=== PATIENT | male | born 1950 | race Caucasian/White ===

== ENCOUNTER → 2016-10-18 | Outpatient (CLI) | payer OTHER ==
[~2016-10-18] MED LIST: ADVIN50/60 INH; ALBU1AER9 INH; AMOX500C3 PO; ASPI-461 PO; ATOR-24 PO; DIGO0.2518 PO; ENAL10TA88 PO; EZET10TA63 PO; FRS/40 PO; GLC/500 PO; HYDR-5688 PO; IBUP600T44 PO; INDO1CAP34 PO; METO-551 PO; METO5TAB5 PO; OXYC-57 PO; POTA12PO5 PO; TIOTCAP INH; VENL75CA73 PO; ZOLP10TA6 PO
[2016-10-18 14:06] LABS: CHOLESTEROL/HDL RATIO 2.8
== END | disposition home or self-care (01) ==
LOC: C.LABMFLN 11:27
PROVIDERS: ATTEND Internal Medicine Cardiovascular Disease
DX: E78.5 Hyperlipidemia, unspecified (principal); I10 Essential (primary) hypertension

== ENCOUNTER → 2017-02-21 | Outpatient (CLI) | payer OTHER ==
[~2017-02-21] MED LIST changes: -GLC/500 PO; -IBUP600T44 PO; -OXYC-57 PO
[2017-02-21 14:07] LABS: BASO % 0.4 %; BASO ABS # 0.04 K/uL (0-0.2); COMPLETE YES; EOS % 0.9 %; HEMATOCRIT 41.1 % (42-52); IG% 1.9 %; LYMPH % 9.7 %; LYMPH ABS # 0.86 K/uL (1.2-3.4); MEAN CELL VOLUME 88.8 fL (80-100); MEAN CORPUSCULAR HEMOGLOBIN 29.2 pg (25-34); MEAN CORPUSCULAR HGB CONC 32.8 g/dl (32-36); MEAN PLATELET VOLUME 10.8 fL (7.4-10.4); MONO % 3.9 %; NEUT % 83.2 %; PLATELET COUNT 123 K/uL (130-400); RED BLOOD COUNT 4.63 M/uL (4.7-6.1)
[2017-02-21 15:19] LABS: CALCIUM 9.2 mg/dl (8.5-10.1)
[2017-02-21 15:20] LABS: ALT/SGPT 23 U/L (12-78); AST/SGOT 16 U/L (15-37); BLOOD UREA NITROGEN 26 mg/dl (7-18); BUN/CREATININE RATIO 23.3 (10-20); CARBON DIOXIDE 29 mmol/L (21-32); CHLORIDE 99 mmol/L (98-107); GLUCOSE 211 mg/dl (70-99); POTASSIUM 3.9 mmol/L (3.5-5.1); SODIUM 136 mmol/L (136-145)
[2017-02-21 15:24] LABS: ALB/GLOB RATIO 1.1 (0.9-2); ALKALINE PHOSPHATASE 55 U/L (45-117); CHOLESTEROL 152 mg/dl (0-200); HDL CHOLESTEROL 51 mg/dl; LDL CHOLESTEROL CALCULATED 78 mg/dl; PROSTATE SPECIFIC ANTIGEN 0.371 ng/ml (0.000-4.000); TRIGLYCERIDES 114 mg/dl (0-150); VERY LOW DENSITY LIPOPROT CALC 23 mg/dl
[2017-02-22 12:35] LABS: ESTIMATED AVERAGE GLUCOSE 166 mg/dl; HA1C FLAG Normal (Normal)
== END | disposition home or self-care (01) ==
LOC: C.LABSPEC 13:08
PROVIDERS: ATTEND Family Medicine
DX: Z00.00 Encounter for general adult medical examination without abnormal findings (principal); I10 Essential (primary) hypertension; G47.33 Obstructive sleep apnea (adult) (pediatric); I25.10 Atherosclerotic heart disease of native coronary artery without angina pectoris; Z12.5 Encounter for screening for malignant neoplasm of prostate

== ENCOUNTER → 2017-04-04 | Outpatient (CLI) | payer OTHER ==
[~2017-04-04] MED LIST changes: +GLC/500 PO; +IBUP600T44 PO; +OXYC-57 PO
[2017-04-04 14:07] LABS: ALT/SGPT 23 U/L (12-78); AST/SGOT 17 U/L (15-37); BLOOD UREA NITROGEN 21 mg/dl (7-18); BUN/CREATININE RATIO 21.8 (10-20); CALCIUM 9.5 mg/dl (8.5-10.1); CARBON DIOXIDE 34 mmol/L (21-32); CHLORIDE 101 mmol/L (98-107); CREATININE 0.97 mg/dl (0.60-1.40); GLUCOSE 173 mg/dl (70-99); POTASSIUM 4.1 mmol/L (3.5-5.1); SODIUM 138 mmol/L (136-145)
[2017-04-04 14:11] LABS: CHOLESTEROL 158 mg/dl (0-200); CHOLESTEROL/HDL RATIO 3.3; HDL CHOLESTEROL 48 mg/dl; LDL CHOLESTEROL CALCULATED 79 mg/dl; TRIGLYCERIDES 156 mg/dl (0-150); VERY LOW DENSITY LIPOPROT CALC 31 mg/dl
== END | disposition home or self-care (01) ==
LOC: C.LAB1850 11:31
PROVIDERS: ATTEND Internal Medicine Pulmonary Disease
DX: J44.9 Chronic obstructive pulmonary disease, unspecified (principal); I50.9 Heart failure, unspecified; I25.10 Atherosclerotic heart disease of native coronary artery without angina pectoris

== ENCOUNTER → 2017-04-06 | Outpatient (CLI) | payer OTHER ==
[~2017-04-06] MED LIST changes: +OPTIRAY 320 IV PRN
--- NOTE | 2017-04-06 14:02 | DIAGNOSTIC IMAGING REPORT ---
CT OF THE CHEST WITH IV CONTRAST CLINICAL HISTORY: COPD, shortness of breath, abnormal chest x-ray. COMPARISON STUDY: Chest x-ray dated 03/29/2017 TECHNIQUE: Following the IV administration of 94 mL of Optiray-320, CT of the thorax was performed from the thoracic inlet to the lung bases. Images are reviewed in the axial, sagittal, and coronal planes. IV contrast was administered without complication. A dose lowering technique was utilized adhering to the principles of ALARA. CT DOSE: 1513.72 mGy.cm FINDINGS: Thyroid: Imaged portions of the thyroid gland are normal in appearance. Thoracic aorta: The thoracic aorta is normal in course and caliber, noting standard 3-vessel arch anatomy. No aneurysm or dissection is seen. Pulmonary vasculature: The pulmonary trunk is normal in caliber. There are no central filling defects identified to suggest pulmonary embolus. Note that this examination was not protocoled for the evaluation of pulmonary emboli. HEART: There are coronary artery calcifications present. Lungs and pleural spaces: There is a small left pleural effusion. Left basilar parenchymal opacities are felt to be atelectatic. Mediastinum: There is mediastinal lymphadenopathy. An index subcarinal lymph node measures 16 mm in diameter. [place]: There is no evidence of pathologic hilar adenopathy Axilla: There is no evidence of pathologic axillary lymphadenopathy Upper abdomen: There is suspected splenomegaly Skeletal structures: There are no lytic or blastic osseous lesions. IMPRESSION: 1. Small left pleural effusion with left basilar atelectasis 2. Mild mediastinal lymphadenopathy 3. Splenomegaly Electronically signed by: Erlin Beth M.D. 04/06/2017 2:00 PM Dictated Date/Time: 04/06/2017 1:55 PM
== END | disposition home or self-care (01) ==
LOC: C.CTS 12:25
PROVIDERS: ATTEND Internal Medicine Pulmonary Disease
DX: J44.9 Chronic obstructive pulmonary disease, unspecified (principal); G47.33 Obstructive sleep apnea (adult) (pediatric); R06.02 Shortness of breath; J90 Pleural effusion, not elsewhere classified; J98.11 Atelectasis; R16.1 Splenomegaly, not elsewhere classified

== ENCOUNTER 2017-04-18 06:39 | Observation (INO) | payer OTHER ==
[2017-03-29 08:45] VITALS: BMI 41.0
--- NOTE | 2017-03-29 09:34 | PAT Medication Instructions ---
Service Date Mar 29, 2017. Current Home Medication List Albuterol (Proair Hfa), 2 PUFFS INH BID PRN for COPD/EMPHYSEMA Amoxicillin (Amoxil), 4 CAP PO BEFORE DENTAL Aspirin (Aspirin), 1 TAB PO QAM Atorvastatin (Lipitor), 40 MG PO HS Digoxin (Lanoxin), 0.25 MG PO HS Enalapril (Vasotec), 20 MG PO QAM Ezetimibe (Zetia), 10 MG PO HS Fluticasone Prop/Salmeterol (Advair Diskus 500/50 60 Dose), 1 PUFF INH QAM Furosemide (Lasix), 80 MG PO DAILY PRN for WEIGHT GAIN Hydrocodone/Acetaminophen 5MG/325MG ([place] 5MG/325MG), 1 TABLET PO Q4H PRN for Pain Indomethacin (Indomethacin), 75 MG PO DAILY PRN for PRN Metformin Hcl (Glucophage), 500 MG PO BID Metolazone (Zaroxolyn), 5 MG PO DAILY PRN for WHEN TAKES LASIX Metoprolol Tartrate (Lopressor), 50 MG PO QAM Potassium Chloride (Klor-Con), 2 TABS PO DAILY PRN for WHEN TAKES LASIX Tiotropium [place] (Spiriva Handihaler), 1 CAP INH QAM Venlafaxine Hcl (Venlafaxine Extended Rel), 75 MG PO QAM Zolpidem Tartrate (Zolpidem Tartrate), 1 TAB PO HS Medication Instructions For Your Scheduled Surgery Amoxicillin (Amoxil), 4 CAP PO BEFORE DENTAL (prior to dental procedures) Aspirin (Aspirin), 81mg 1 TAB PO QAM (check with surgeon/matching machine operator for instructions) Indomethacin (Indomethacin), 75 MG PO DAILY PRN for PRN (check with surgeon for instructions) - Hold the following medications 48 hours prior to surgery: Metformin Hcl (Glucophage), 500 MG PO BID - Hold the following medications the morning of surgery: Potassium Chloride (Klor-Con), 2 TABS PO DAILY PRN for WHEN TAKES LASIX Furosemide (Lasix), 80 MG PO DAILY PRN for WEIGHT GAIN Enalapril (Vasotec), 20 MG PO QAM Metolazone (Zaroxolyn), 5 MG PO DAILY PRN for WHEN TAKES LASIX - Take the following medications the morning of surgery with a sip of water: Tiotropium [place] (Spiriva Handihaler), 1 CAP INH QAM Venlafaxine Hcl (Venlafaxine Extended Rel), 75 MG PO QAM Metoprolol Tartrate (Lopressor), 50 MG PO QAM Hydrocodone/Acetaminophen 5MG/325MG ([place] 5MG/325MG), 1 TABLET PO Q4H PRN for Pain (okay to take up to four hours prior to surgery if needed) Fluticasone Prop/Salmeterol (Advair Diskus 500/50 60 Dose), 1 PUFF INH QAM Albuterol (Proair Hfa), 2 PUFFS INH BID PRN for COPD/EMPHYSEMA (if needed) - Take the following medications as scheduled the night before surgery: Zolpidem Tartrate (Zolpidem Tartrate), 1 TAB PO HS Hydrocodone/Acetaminophen 5MG/325MG ([place] 5MG/325MG), 1 TABLET PO Q4H PRN for Pain (if needed) Potassium Chloride (Klor-Con), 2 TABS PO DAILY PRN for WHEN TAKES LASIX (if needed) Furosemide (Lasix), 80 MG PO DAILY PRN for WEIGHT GAIN (if needed) Ezetimibe (Zetia), 10 MG PO HS Atorvastatin (Lipitor), 40 MG PO HS Digoxin (Lanoxin), 0.25 MG PO HS Albuterol (Proair Hfa), 2 PUFFS INH BID PRN for COPD/EMPHYSEMA (if needed) Metolazone (Zaroxolyn), 5 MG PO DAILY PRN for WHEN TAKES LASIX If you have any questions please call us at [phone] or [phone] or [phone]
--- NOTE | 2017-03-29 10:34 | DIAGNOSTIC IMAGING REPORT ---
CHEST PREADMISSION(PA/LAT) HISTORY: Preop. COMPARISON: Chest 09/11/2014. FINDINGS: The heart remains mildly enlarged. No pneumothorax. The right lung is clear. Small opacity and blunting and the left lateral costophrenic sulcus. This is consistent with a small left pleural effusion. There are few left basilar linear densities. IMPRESSION: Small left pleural effusion. A few left basilar nonspecific linear densities which may represent atelectasis. Stable mild cardiomegaly. Electronically signed by: Heber Saldivar M.D. 03/29/2017 10:33 AM Dictated Date/Time: 03/29/2017 10:27 AM
[2017-03-29 10:42] LABS: BASO % 0.7 %; BASO ABS # 0.06 K/uL (0-0.2); COMPLETE YES; EOS % 1.6 %; HEMATOCRIT 40.1 % (42-52); IG% 3.4 %; LYMPH % 11.8 %; LYMPH ABS # 1.04 K/uL (1.2-3.4); MEAN CELL VOLUME 90.7 fL (80-100); MEAN CORPUSCULAR HGB CONC 31.9 g/dl (32-36); MEAN PLATELET VOLUME 9.8 fL (7.4-10.4); NEUT % 74.5 %; PLATELET COUNT 131 K/uL (130-400); RED BLOOD COUNT 4.42 M/uL (4.7-6.1); WHITE BLOOD COUNT 8.83 K/uL (4.8-10.8)
[2017-03-29 10:44] LABS: URINE APPEARANCE CLEAR (CLEAR); URINE BILIRUBIN NEG (NEG); URINE COLOR YELLOW; URINE NITRITE NEG (NEG); URINE PH 7.5 (4.5-7.5); URINE SPECIFIC GRAVITY 1.014 (1.000-1.030); UROBILINOGEN NEG (NEG); ZZUR CULT IF INDIC CLEAN CATCH NO
[2017-03-29 10:45] LABS: MANUAL MICROSCOPIC REQUIRED? NO; REVIEW REQ? NO
[2017-03-29 10:48] LABS: BUN/CREATININE RATIO 18.4 (10-20); CREATININE 1.1 mg/dl (0.60-1.40); POTASSIUM 4.2 mmol/L (3.5-5.1)
[2017-03-29 10:49] LABS: INR 1.1 (0.9-1.1); PARTIAL THROMBOPLASTIN RATIO 1.1; PROTHROMBIN TIME (PATIENT) 11.9 SECONDS (9.0-12.0)
--- NOTE | 2017-04-17 19:21 | HISTORY & PHYSICAL EXAMINATION ---
DATE OF ADMISSION: 04/18/2017 CHIEF COMPLAINT: Chronic left shoulder pain. HISTORY OF PRESENT ILLNESS: This is a 67-year-old male patient of Dr. Guerrero, complaining of chronic left shoulder pain longstanding and now progressively getting worse. The patient had a fall at his home. He has been diagnosed with a rotator cuff tear as well as impingement. He is electing to proceed with a left shoulder arthroscopic rotator cuff repair and subacromial decompression. PAST MEDICAL HISTORY: Hypertension, hypercholesterolemia, COPD, sleep apnea with the use of CPAP, diabetes mellitus, obesity, kidney stones. SOCIAL HISTORY: One pack per day smoker. Occasional drinker. PAST SURGICAL HISTORY: Stents in the heart and a left total hip replacement. REVIEW OF SYSTEMS: The patient complains of chronic left shoulder pain. Otherwise, denies any shortness of breath, chest pain, nausea, vomiting or joint complaints. FAMILY HISTORY: Noncontributory. MEDICATIONS: 1. Metoprolol 50 mg daily. 2. Advair Diskus 100/50 mcg 1 puff b.i.d. 3. ProAir HFA 90 mcg 2 puffs q. 4-6 hours p.r.n. 4. Digoxin 50 mcg as needed. 5. Indomethacin 50 mg t.i.d. as needed. 6. Vicodin. 7. Amoxicillin. 8. Keflex. 9. Prednisone as needed. ALLERGIES: STRAWBERRY FOODS. PHYSICAL EXAMINATION: GENERAL: Well-developed, well-nourished 67-year-old male in no acute distress. He is alert and oriented x3 and pleasant. HEENT: Normocephalic, atraumatic. Extraocular motions are intact. Pupils are equal and reactive to light. HEART: Regular rate and rhythm. No murmurs are appreciated. LUNGS: Clear. ABDOMEN: Soft, nontender, bowel sounds are present. EXTREMITIES: Left shoulder reveals 3/5 strength globally. He has got positive impingement range of motion. NEUROLOGIC: Neurovascularly, he is intact in his left upper extremity. DIAGNOSES: Left shoulder rotator cuff tear and impingement. He also has a history of hypertension, hypercholesterolemia, chronic obstructive pulmonary disease, sleep apnea with the use of CPAP, diabetes mellitus, obesity, kidney stones. PLAN: The patient was advised of the diagnoses. Indications, risks, benefits, and postop course have all been reviewed. The patient wishes to proceed with a left shoulder arthroscopic rotator cuff repair and subacromial decompression. Necessary consent forms, preoperative testing and clearances will be obtained.
[~2017-04-18] VITALS: Ht 182.9 cm; Wt 138.4 kg
[2017-04-18] VITALS (9 sets, daily range): BP systolic 123–147; BP diastolic 69–92; PULSE 76–93; TEMP 36.8–37.3; O2SAT 91–96; Ht 182.9 cm; Wt 138.4 kg
[~2017-04-18 06:39] MED LIST changes: +CEFAZOLIN 3000 MG/65 ML D5W IV SCH; +DEXAMETHASONE SOD INJ 4 MG/ML VIAL ONE; -IBUP600T44 PO; +LACTATED RINGER'S 1000ML 1,000 ML IV SCH; -OPTIRAY 320 IV PRN; -OXYC-57 PO; +ROPIVACAINE 0.5% 5 MG/ML 30 ML VIAL ONE
[2017-04-18] MEDS ORDERED: IBUP600T44 PO (07:03)
--- NOTE | 2017-04-18 08:53 | History & Physical Bridge Note ---
H&P Re-Evaluation Bridge Note: I have examined the patient, reviewed the History & Physical and in the interval since the performance of the History & Physical I have noted the following changes of clinical significance: No changes noted
[2017-04-18] MEDS ORDERED: FENTANYL CITRATE INJ 50 MCG/1 ML 2 ML VIAL ONE (09:07)
[2017-04-18] MEDS ORDERED: MIDAZOLAM HCL 1 MG/ML 2ML VIAL ONE (09:07)
[2017-04-18] MEDS ORDERED: EpINEphrine HCL INJ 1 MG/ML 5ML SYRINGE ONE ×4 (09:33→12:39)
[2017-04-18] MEDS ORDERED: PROPOFOL IV EMULSION 10 MG/ML 20 ML VIAL IV ONE (10:42)
[2017-04-18] MEDS ORDERED: LABETALOL HCL IV 5 MG/ML 20ML IV PRN (10:45)
[2017-04-18] MEDS ORDERED: HYDROmorphone INJ 1 MG/ML SYR IV PRN (10:45)
[2017-04-18] MEDS ORDERED: MEPERIDINE HCL 25 MG/ML CARP IV PRN (10:45)
[2017-04-18] MEDS ORDERED: FENTANYL CITRATE INJ 50 MCG/1 ML 2 ML VIAL IV PRN (10:45)
[2017-04-18] MEDS ORDERED: EpHEDrine SULFATE INJ 50 MG/ML AMP IV PRN (10:45)
[2017-04-18] MEDS ORDERED: ATROPINE SULFATE 0.1 MG/ML 5ML SYR IV PRN (10:45)
[2017-04-18] MEDS ORDERED: LIDOCAINE HCL 2% 2 ML VIAL (20MG/ML) ONE (11:27)
[2017-04-18] MEDS ORDERED: NEOSTIGMINE METHYLSULFATE 5 MG/5 ML SYR ONE (11:27)
[2017-04-18] MEDS ORDERED: ROCURONIUM BROMIDE 10 MG/ML 5 ML VIAL IV ONE (11:27)
[2017-04-18] MEDS ORDERED: GLYCOPYRROLATE INJ 0.2 MG/ML VIAL ONE (11:27)
[2017-04-18] MEDS: ONDANSETRON INJ 2 MG/ML 2 ML VIAL IV PRN (13:42)
[2017-04-18] MEDS ORDERED: MAGNESIUM HYDROXIDE SUSP 30 ML UDC PO PRN (14:00)
[2017-04-18] MEDS ORDERED: ALBUTEROL HFA 8 GM INHALER INH PRN (14:00)
[2017-04-18] MEDS ORDERED: POTASSIUM CHLORIDE PWD 20 MEQ PACK PO PRN (14:00)
[2017-04-18] MEDS ORDERED: METOLAZONE 5 MG TAB PO PRN (14:00)
[2017-04-18] MEDS ORDERED: FUROSEMIDE 40 MG TAB PO PRN (14:00)
[2017-04-18] MEDS ORDERED: ONDANSETRON INJ 2 MG/ML 2 ML VIAL IV PRN (14:00)
[2017-04-18] MEDS ORDERED: MoRPHine SULFATE 2 MG/ML CARP IV PRN (14:00)
--- NOTE | 2017-04-18 14:06 | [facility] Post Operative Brief Note ---
Immediate Operative Summary Operative Date Apr 18, 2017. Pre-Operative Diagnosis Left shoulder rotator cuff tear and impingment Post-Operative Diagnosis Left shoulder rotator cuff tear and impingment Procedure(s) Performed Left shoulder arthroscopic rotator cuff repair, subacromial decompression,EXTENSIVE DEBRIDEMENT Surgeon Dr. Fernandez Paper Sealer Surgeon(s) Lupe Funez PA-C Estimated Blood Loss 25CC Findings MASSIVE TEAR ACUTE ON CHRONIC BICEPS AND LABRAL TEARS AND HILL SACHS LESION Specimens NONE Drains NONE Anesthesia GENERAL REGIONAL Complication(s) None Disposition Recovery Room / PACU
[2017-04-18] MEDS ORDERED: IV FLUIDS COMPLETED PRN (14:15)
--- NOTE | 2017-04-18 14:28 | Anesthesiology Progress Note ---
Anesthesia Post Op Note Date & Time Apr 18, 2017 at 14:28 Vital Signs Pain Intensity: 2 Vital Signs Past 12 Hours Date Time Temp Pulse Resp B/P (MAP) Pulse Ox O2 Delivery O2 Flow Rate FiO2 04/18/17 14:07 36.3 80 22 124/72 (88) 95 Nasal Cannula 2 04/18/17 14:06 124/72 04/18/17 14:02 71 28 95 04/18/17 14:02 75 28 04/18/17 14:01 120/67 04/18/17 13:57 77 22 98 04/18/17 13:57 83 22 04/18/17 13:56 124/73 04/18/17 13:52 74 30 04/18/17 13:52 79 30 97 04/18/17 13:51 119/80 04/18/17 13:47 83 29 04/18/17 13:47 84 29 97 04/18/17 13:46 121/66 04/18/17 13:42 82 22 04/18/17 13:42 90 22 96 04/18/17 13:41 119/70 04/18/17 13:37 92 23 04/18/17 13:37 90 23 96 04/18/17 13:36 123/80 04/18/17 13:32 36.0 85 12 115/75 94 Mask 10 04/18/17 13:32 77 28 115/75 94 04/18/17 13:32 79 28 04/18/17 07:03 37.1 79 20 132/75 (94) 94 Room Air Notes Mental Status: alert / awake / arousable, participated in evaluation Pt Amnestic to Procedure: Yes Nausea / Vomiting: adequately controlled Pain: adequately controlled Airway Patency, RR, SpO2: stable & adequate BP & HR: stable & adequate Hydration State: stable & adequate Anesthetic Complications: no major complications apparent
[2017-04-18] MEDS ORDERED: NURSING VERBAL MED ORDER ONE (15:45)
[2017-04-18] MEDS ORDERED: COUGH DROP (SUGAR FREE) LOZ 24 LOZ/1 BOX ONE (15:48)
[2017-04-18] MEDS ORDERED: COUGH DROP (SUGAR FREE) LOZ 24 LOZ/1 BOX PO PRN (16:00)
[2017-04-18] MEDS ORDERED: ALBUT/IPRATROP 3MG/0.5MG NEB 3 ML VIAL INH PRN ×2 (16:00→16:15)
[2017-04-18] MEDS ORDERED: D5W AND 1/2NSS + 20MEQ KCL 1,000 ML IV SCH (16:00)
--- NOTE | 2017-04-18 16:11 | Progress Note ---
Subjective Date of Service: Apr 18, 2017. Subjective Pt evaluation today including: conversation w/ patient, conversation w/ family (daughter), physical exam, lab review, review of inpatient medication list Pain: denies shoulder pain PO Intake: drinking well Voiding: no voiding problems surgery went well, had extensive damage and took longer than anticipated, EBL only 25cc vitals stable post op patient denies chest pain, SOB, N/V, abdominal pain resting with nasal CPAP currently reviewed prior labs Review of Systems Musculoskeletal: + joint pain (mild left shoulder pain, immobilized) All Other Systems: Reviewed and Negative Medications Current Inpatient Medications Medications (Trade) Dose Ordered Sig/Cheri Route Start Time Stop Time Status Last Admin Dose Admin Cefazolin Sodium 65 ml @ 100 mls/hr PREOP IV 04/18/17 06:00 04/18/17 18:00 04/18/17 09:57 100 MLS/HR Ondansetron HCl (Zofran Inj) 4 mg Q6H PRN IV 04/18/17 14:00 05/18/17 13:59 Potassium Chloride/Dextrose/ Sod Cl 1,000 ml @ 100 mls/hr Q10H IV 04/18/17 16:00 05/18/17 15:59 Oxycodone HCl (Roxicodone Immediate Rel Tab) `1-2 TABS FOR PAIN `1 TAB... Q4H PRN PO 04/18/17 14:00 05/02/17 13:59 Acetaminophen (Tylenol Tab) 1,000 mg Q8 PO 04/18/17 15:45 05/18/17 15:44 Magnesium Hydroxide (Milk Of Magnesia Susp) 30 ml Q6H PRN PO 04/18/17 14:00 05/18/17 13:59 Cefazolin Sodium 2000 mg/Dextrose 60 ml @ 100 mls/hr Q8H IV 04/18/17 18:00 04/18/17 18:35 Albuterol (Ventolin Hfa Inhaler) 2 puffs BID PRN INH 04/18/17 14:00 05/18/17 13:59 Aspirin (Ecotrin Tab) 81 mg QAM PO 04/19/17 09:00 05/19/17 08:59 Atorvastatin Calcium (Lipitor Tab) 40 mg HS PO 04/18/17 21:00 05/18/17 20:59 Digoxin (Lanoxin Tab) 0.25 mg HS PO 04/18/17 21:00 05/18/17 20:59 Enalapril Maleate (Vasotec Tab) 20 mg QAM PO 04/19/17 09:00 05/19/17 08:59 EZETIMIBE (Zetia Tab) 10 mg HS PO 04/18/17 21:00 05/18/17 20:59 Salmeterol Xinafoate/ Fluticasone (Advair Diskus 500/50 Inh) 1 puff QAM INH 04/19/17 09:00 05/19/17 08:59 Furosemide (Lasix Tab) 80 mg DAILY PRN PO 04/18/17 14:00 05/18/17 13:59 Metformin HCl (Glucophage Tab) 500 mg BID PO 04/18/17 21:00 05/18/17 20:59 Metolazone (Zaroxolyn Tab) 5 mg DAILY PRN PO 04/18/17 14:00 05/18/17 13:59 Metoprolol Tartrate (Lopressor Tab) 50 mg QAM PO 04/19/17 09:00 05/19/17 08:59 Potassium Chloride (Klor-Con Pwd) 40 meq DAILY PRN PO 04/18/17 14:00 05/18/17 13:59 Venlafaxine HCl (effeXOR EXTENDED REL CAP) 75 mg QAM PO 04/19/17 09:00 05/19/17 08:59 Zolpidem Tartrate (Ambien Tab) 10 mg HS PO 04/18/17 21:00 05/18/17 20:59 Morphine Sulfate (MoRPHine SULFATE INJ) 2 mg Q4 PRN IV 04/18/17 14:00 05/02/17 13:59 Miscellaneous (Iv Fluids Completed) 1 ea PRN PRN N/A 04/18/17 14:15 04/18/18 14:14 Menthol (Nice Klarissa) 1 klarissa PRN PRN PO 04/18/17 16:00 05/18/17 15:59 Insulin Aspart (novoLOG ASPART) SLIDING SCALE G... ACHS SC 04/18/17 17:15 05/18/17 17:14 UNV Albuterol/ Ipratropium (Duoneb) 3 ml Q4R PRN INH 04/18/17 16:00 05/18/17 15:59 UNV Objective Vital Signs Date Time Temp Pulse Resp B/P (MAP) Pulse Ox O2 Delivery O2 Flow Rate FiO2 04/18/17 15:40 37.2 83 20 138/79 (98) 96 Nasal Cannula 2.0 04/18/17 15:10 36.8 83 18 123/73 (90) 95 Nasal Cannula 2.0 04/18/17 14:40 94 Nasal Cannula 2.0 04/18/17 14:40 Nasal Cannula 2.0 CPAP 04/18/17 14:30 37.0 82 16 126/86 (99) 95 Nasal Cannula 2.0 04/18/17 14:27 76 17 131/74 04/18/17 14:27 17 04/18/17 14:22 81 27 04/18/17 14:22 77 27 94 04/18/17 14:21 120/65 04/18/17 14:17 79 26 93 04/18/17 14:17 80 26 04/18/17 14:16 125/63 04/18/17 14:12 78 27 93 04/18/17 14:12 80 27 04/18/17 14:11 116/64 04/18/17 14:07 36.3 80 22 124/72 (88) 95 Nasal Cannula 2 04/18/17 14:07 79 28 95 04/18/17 14:07 79 28 04/18/17 14:06 124/72 04/18/17 14:02 71 28 95 04/18/17 14:02 75 28 04/18/17 14:01 120/67 04/18/17 13:57 77 22 98 04/18/17 13:57 83 22 04/18/17 13:56 124/73 04/18/17 13:52 74 30 04/18/17 13:52 79 30 97 04/18/17 13:51 119/80 04/18/17 13:47 83 29 04/18/17 13:47 84 29 97 04/18/17 13:46 121/66 04/18/17 13:42 82 22 04/18/17 13:42 90 22 96 04/18/17 13:41 119/70 04/18/17 13:37 92 23 04/18/17 13:37 90 23 96 04/18/17 13:36 123/80 04/18/17 13:32 36.0 85 12 115/75 94 Mask 10 04/18/17 13:32 77 28 115/75 94 04/18/17 13:32 79 28 04/18/17 07:03 37.1 79 20 132/75 (94) 94 Room Air Physical Exam General Appearance: no apparent distress, + obese Eyes: normal inspection, EOMI, sclerae normal ENT: normal ENT inspection, hearing grossly normal, pharynx normal Neck: supple, no adenopathy, no JVD, trachea midline Respiratory/Chest: chest non-tender, lungs clear, normal breath sounds, no respiratory distress, no accessory muscle use Cardiovascular: regular rate, rhythm, no edema, no gallop, no JVD, no murmur Abdomen: normal bowel sounds, non tender, soft, no organomegaly Extremities: no pedal edema, no calf tenderness, pelvis stable, + pertinent finding (left shoulder immobilized) Neurologic/Psychiatric: motor man II-XII nml as tested, no motor/sensory deficits, alert, normal mood/affect, oriented x 3 Skin: normal color, warm/dry, no rash Laboratory Results Last 24 Hours Test 04/18/17 07:35 04/18/17 13:36 04/18/17 15:59 Bedside Glucose 187 mg/dl 246 mg/dl Assessment and Plan 67 yo male s/p Left shoulder arthroscopic rotator cuff repair, subacromial decompression and extensive debridement - DM type II: continue Metformin, Novolog SS ordered, diabetic diet well controlled at home per patient - COPD: continue Advair, duonebs ordered PRN, no wheezing currently and breathing comfortably - HTN: BP normal currently, continue home regimen, check BMP tomorrow AM - BELEN: using home CPAP with nasal mask - GERD: PPI check labs in the AM, likely sign off if he remains stable
[2017-04-18] MEDS ORDERED: GLUCAGON FOR INJ 1 MG VIAL SQ PRN (16:15)
[2017-04-18] MEDS ORDERED: DEXTROSE 50% 50 ML SYR IV PRN (16:15)
[2017-04-18] MEDS ORDERED: GLUCOSE 40% GEL 15 GM TUBE PO PRN (16:15)
[2017-04-18] MEDS ORDERED: GLUCOSE 10 TABS/TUBE PO PRN (16:15)
[2017-04-18] MEDS: ACETAMINOPHEN 500 MG TAB PO SCH ×2 (16:22→21:07)
[2017-04-18] MEDS: SODIUM CHLORIDE 0.45% 1000ML 1,000 ML IV SCH (17:02)
[2017-04-18] MEDS ORDERED: CEFAZOLIN IV 2,000 MG in DEXTROSE 5% 50ML 50 ML IV SCH (18:00)
[2017-04-18] MEDS: INSULIN ASPART 100 UNITS/ML 3 ML PEN SC SCH ×2 (18:18→21:16)
[2017-04-18] MEDS ORDERED: EZETIMIBE 10MG TAB PO SCH (21:00)
[2017-04-18] MEDS ORDERED: ATORVASTATIN 40 MG TAB PO SCH (21:00)
[2017-04-18] MEDS ORDERED: ZOLPIDEM TARTRATE 10 MG TAB PO SCH (21:00)
[2017-04-18] MEDS ORDERED: DIGOXIN 0.25 MG TAB PO SCH (21:00)
[2017-04-18] MEDS: METFORMIN HCL 500 MG TAB PO SCH (21:04)
[2017-04-18] MEDS: OXYCODONE HCL IR 5 MG TAB (IMMEDIATE RELEASE) PO PRN (23:48)
[2017-04-19] MEDS: SODIUM CHLORIDE 0.45% 1000ML 1,000 ML IV SCH (02:18)
[2017-04-19 03:58] VITALS: BP 105/73; PULSE 82; TEMP 37.1; O2SAT 97
[2017-04-19] MEDS: OXYCODONE HCL IR 5 MG TAB (IMMEDIATE RELEASE) PO PRN (04:07)
--- NOTE | 2017-04-19 04:44 | OPERATIVE REPORT ---
DATE OF OPERATION: 04/18/2017 INDICATION FOR PROCEDURE: The patient is a 67-year-old male who presents with significant disability with regard to his left shoulder after a dislocation. According to his history, claimed that he had normal function, although he has had a chronic rotator cuff tear in his opposite shoulder and felt he had normal function there but clearly had some external rotation weakness but was not giving him a big disability. So it was a possibility he could have some element of chronic tearing of his left shoulder as well that he was compensating for. His radiographs demonstrate he has some AC joint arthritis with some inferior spurs causing impingement. He also had x-rays demonstrating a large Hill-Sachs lesion and a located shoulder. MRI demonstrating a large Hill-Sachs lesion, a massive cuff tear involving the subscapularis, supraspinatus and infraspinatus. Biceps is not well visualized and could be ruptured. PREOPERATIVE DIAGNOSES: Left shoulder massive posttraumatic rotator cuff tear, likely acute on chronic with possible biceps rupture with Hill-Sachs lesion secondary to subacute anterior dislocation of left shoulder, complicated by morbid obesity. POSTOPERATIVE DIAGNOSES: Massive rotator cuff tear, subscapularis, supraspinatus and infraspinatus with biceps rupture, glenoid labral tear, synovitis, subacromial bursitis, subacromial impingement from inferior acromioclavicular joint spurs. PROCEDURE: Left shoulder arthroscopic rotator cuff repair with extensive debridement and subacromial decompression. SURGEON: Dr. Fernandez. DRESSING ROOM PORTER: Lupe Funez PA-C. ANESTHESIA: Regional block and general. OPERATIVE PROCEDURE: The patient was taken to the operating room and anesthetized under regional block and general anesthetic. He was positioned on a [facility] shoulder table in a 70-degree beach chair position. His left shoulder was examined. He did have an obese arm. Most of his obesity was in his body, chest and hip area. His shoulder had good range of motion with 165 degrees of forward elevation and external rotation of the arm to the side to about 80 degrees. I did not check him in the 90-90 position to prevent recurrent dislocation. His left shoulder was then sterilely prepped and draped with ChloraPrep. Arthroscopy was initiated with a posterior arthroscopy portal in the soft spot, made an anterior portal in the rotator interval, we made an anterior lateral portal in the subacromial space to assist with the repair of the subscapularis and subacromial work. I made an anterior superior lateral portal for suture anchor placement. Intra-articular findings demonstrate that he had a very large deep Hill-Sachs lesion posteriorly. The remainder of the articular surface was reasonably good. He had a little bit of fraying of the articular surface at the edge of the Hill-Sachs lesion. He had torn anterior labrum, but no Bankart lesion. There was some fraying of the labrum and some small flaps of tissue there. The biceps tendon was completely torn with a small stump of biceps remaining superiorly of the superior glenoid. The patient clearly had a subscapularis upper margin tear. There was a ____ sign that would be typically seen. The lower portion of the subscapularis was still intact, although thin and somewhat tendinopathic. The supraspinatus was torn and retracted, the infraspinatus was torn and retracted and the teres minor was still intact. The infraspinatus tendon was torn into 2 fragments, about two-thirds and one-third of the infraspinatus with a smaller thinner fragment toward the supraspinatus junction. One could clearly see on the greater tuberosity that the infraspinatus tear appeared to be more acute as there was some soft tissue still remaining on the greater tuberosity, right adjacent to the large Hill-Sachs lesion. Supraspinatus appeared to be more chronic tearing. In the subacromial space, he had a type 2 acromion. He did not have any fraying of the CA ligament, but did have some inferior AC joint spurs that were contributing to some impingement. There was some thick bursa tissue overlying the rotator cuff. Starting at glenohumeral joint, I released the rotator interval tissue around the base of the coracoid, the upper portion of the subscapularis, the outer and inner surface of subscapularis that could be mobilized and released the superior capsule into the supraspinatus. I did this with the radiofrequency ablator. I took care not to go more than a centimeter medial to the glenoid to prevent any injury to the suprascapular nerve. The biceps tendon was debrided. The labrum was debrided back to normal tissue, some of the synovium was debrided. Then the footprint of the subscapularis, lesser tuberosity was debrided to bone. Then we put traction on the subscap tendon to see how far we could get it to the lesser tuberosity to repair. We were able to fully translate it over to the lesser tuberosity. Then I went ahead and placed a Q-Fix anchor at that fixation point which was a 2.8 mm López & Nephew suture anchor. It held satisfactorily. The sutures were passed with the Boloco suture passer around the subscapularis tendon. Then tied with Belle sliding locking knot 3 reverse half hitches on alternating posts, repairing subscap back to the lesser tuberosity. Then attention was taken to the remainder of the cuff repair. Then we placed the arthroscopic instrumentation into the subacromial space, did further debridement of the subacromial bursa, releasing all subacromial adhesions and fully visualizing the cuff tear of the supraspinatus and infraspinatus. Then we placed traction on the supraspinatus and infraspinatus and felt we could repair these back to the bone, although not all the way back anatomically at the normal location due to some retraction. Also due to some tendon loss. At this time, attention was first taken to the infraspinatus and supraspinatus. The infraspinatus footprint was debrided down to bone. The supraspinatus footprint was debrided down to bone, all the way up to the subscap repair. Then the infraspinatus was repaired, placing a Q-Fix anchor in the greater tuberosity at the maximum excursion of the infraspinatus, back over the tuberosity in order not to have too much tension on the repair. Then we placed an Arthrex tape, an inverted mattress fixation to act as a rip-stop suture. We passed the Q-Fix sutures around that suture. We tied the Q-Fix sutures first and then we the placed rip-stop sutures into a footprint anchor, however, when we were inserting that, the tapes got caught up in the mechanism of the footprint, making it difficult to slide. We were able to negotiate it into the hole that was made with an awl and impacted in position, but after tightening the screw, the anchor pulled out and we felt we could not use this successfully, so we had to remove the anchor, we could not leave the tapes in place because they were caught up in the mechanism of the anchor and we had to cut the tapes out. Despite that, the fixation of the Q-Fix anchor was still secure and with rotation of the arm, the sutures held in the infraspinatus. The supraspinatus was then repaired with a similar Q-Fix anchor placed in the supraspinatus footprint. We placed the 2 sutures through the supraspinatus tendon tissue using a Scorpion suture passer and tied them down with Belle sliding locking knot 3 reverse half hitches on alternating posts. We were able to get a complete front to back repair, repairing all tendon groups. At this time, the shoulder was getting a bit swollen due to length of the surgery and fluid extravasation, so I felt that we would not proceed with distal clavicle excision due to the mild swelling but did go ahead and proceed with a decompression of the inferior AC joint spurs with a 5.5 bur, playing them down smoother to make more room in the subacromial space and did not do a formal acromioplasty procedure. At this time, the arthroscopic instrumentation was removed. The portal sites were then closed with 2-0 and 3-0 nylon sutures. Sterile dressings were applied and gauze bandages as well as ABDs and foam tape. The patient was placed into an abduction pillow, sling immobilizer. The patient will be admitted for 23-hour observation due to his medical comorbidities. The patient did tolerate the procedure well. FRANCOISE Virk, was my group fitness assistant department head. He functioned as group fitness assistant department head for the entire procedure. He assisted in patient positioning, instrument management, arm positioning, suture management and will participate in some of the postoperative care of the patient. I attest to the content of the Intraoperative Record and any orders documented therein. Any exception s are noted below.
[2017-04-19] MEDS: ACETAMINOPHEN 500 MG TAB PO SCH (06:03)
[2017-04-19 06:32] LABS: BASO % 0.2 %; BASO ABS # 0.02 K/uL (0-0.2); COMPLETE YES; EOS % 0.3 %; HEMATOCRIT 36.5 % (42-52); IG% 1.1 %; LYMPH % 7.8 %; LYMPH ABS # 0.98 K/uL (1.2-3.4); MEAN CELL VOLUME 88.6 fL (80-100); MEAN CORPUSCULAR HEMOGLOBIN 28.9 pg (25-34); MEAN CORPUSCULAR HGB CONC 32.6 g/dl (32-36); MEAN PLATELET VOLUME 9.5 fL (7.4-10.4); MONO % 7.9 %; NEUT % 82.7 %; PLATELET COUNT 118 K/uL (130-400); RED BLOOD COUNT 4.12 M/uL (4.7-6.1); WHITE BLOOD COUNT 12.52 K/uL (4.8-10.8)
[2017-04-19 07:01] LABS: CALCIUM 8.6 mg/dl (8.5-10.1); CREATININE 1.1 mg/dl (0.60-1.40); POTASSIUM 3.9 mmol/L (3.5-5.1)
[2017-04-19 07:07] VITALS: BP 130/72; PULSE 78; TEMP 36.8; O2SAT 98
--- NOTE | 2017-04-19 07:35 | Orthopedic Progress Note ---
Orthopedic Progress Note Date of Service Apr 19, 2017. Subjective Post OP Day: 1 Reports: feeling well, pain controlled w PO medications, Denies: complaints, chest pain, SOB, nausea / vomiting, light headedness, calf pain Additional Notes: O2 sats 98% w cpap and 2 L, c- pap is baseline for him. Objective N/V intact, capillary refill less than 2 sec., dressing C/D/I, A&O x3 Fingers mobile, sling in tact. Date Time Temp Pulse Resp B/P (MAP) Pulse Ox O2 Delivery O2 Flow Rate FiO2 04/19/17 07:07 36.8 78 16 130/72 (91) 98 CPAP 2.0 04/19/17 03:58 37.1 82 18 105/73 (84) 97 Nasal Cannula 2.0 CPAP 04/18/17 23:35 Nasal Cannula 2.0 CPAP 04/18/17 23:01 37.3 89 18 135/80 (98) 95 Nasal Cannula 2.0 CPAP 04/18/17 21:07 77 04/18/17 19:51 37.1 93 18 141/69 (93) 91 Nasal Cannula 2.0 04/18/17 19:34 CPAP 04/18/17 17:37 37.1 76 18 127/80 (96) 95 Nasal Cannula 2.0 04/18/17 16:44 37.0 89 20 147/92 (110) 96 Nasal Cannula 2.0 04/18/17 15:40 37.2 83 20 138/79 (98) 96 Nasal Cannula 2.0 04/18/17 15:10 36.8 83 18 123/73 (90) 95 Nasal Cannula 2.0 04/18/17 14:40 94 Nasal Cannula 2.0 04/18/17 14:40 Nasal Cannula 2.0 CPAP 04/18/17 14:30 37.0 82 16 126/86 (99) 95 Nasal Cannula 2.0 04/18/17 14:27 76 17 131/74 04/18/17 14:27 17 04/18/17 14:22 81 27 04/18/17 14:22 77 27 94 04/18/17 14:21 120/65 04/18/17 14:17 79 26 93 04/18/17 14:17 80 26 04/18/17 14:16 125/63 04/18/17 14:12 78 27 93 04/18/17 14:12 80 27 04/18/17 14:11 116/64 04/18/17 14:07 36.3 80 22 124/72 (88) 95 Nasal Cannula 2 04/18/17 14:07 79 28 95 04/18/17 14:07 79 28 04/18/17 14:06 124/72 04/18/17 14:02 71 28 95 04/18/17 14:02 75 28 04/18/17 14:01 120/67 04/18/17 13:57 77 22 98 04/18/17 13:57 83 22 04/18/17 13:56 124/73 04/18/17 13:52 74 30 04/18/17 13:52 79 30 97 04/18/17 13:51 119/80 04/18/17 13:47 83 29 04/18/17 13:47 84 29 97 04/18/17 13:46 121/66 04/18/17 13:42 82 22 04/18/17 13:42 90 22 96 04/18/17 13:41 119/70 04/18/17 13:37 92 23 04/18/17 13:37 90 23 96 04/18/17 13:36 123/80 04/18/17 13:32 36.0 85 12 115/75 94 Mask 10 04/18/17 13:32 77 28 115/75 94 04/18/17 13:32 79 28 Laboratory Results 24 Hours: Test 04/19/17 06:14 White Blood Count 12.52 K/uL Red Blood Count 4.12 M/uL Hemoglobin 11.9 g/dL Hematocrit 36.5 % Mean Corpuscular Volume 88.6 fL Mean Corpuscular Hemoglobin 28.9 pg Mean Corpuscular Hemoglobin Concent 32.6 g/dl Platelet Count 118 K/uL Mean Platelet Volume 9.5 fL Neutrophils (%) (Auto) 82.7 % Lymphocytes (%) (Auto) 7.8 % Monocytes (%) (Auto) 7.9 % Eosinophils (%) (Auto) 0.3 % Basophils (%) (Auto) 0.2 % Neutrophils # (Auto) 10.35 K/uL Lymphocytes # (Auto) 0.98 K/uL Monocytes # (Auto) 0.99 K/uL Eosinophils # (Auto) 0.04 K/uL Basophils # (Auto) 0.02 K/uL Assessment & Plan Assessment: POD #1 Left shoulder RCR, SAD, debridement. Plan: DVT proph- ASA D/C home today No formal PT needed, may loosen sling for elbow motion only. per medicine Inhouse Planning Pain Management: Morphine, PO Tylenol, Oxy IR DVT Prophylaxis: SCDs, ASA Discharge Planning Discharge Planning: home Pain Management: Percocet DVT Prophylaxis: ASA
[2017-04-19] MEDS ORDERED: OXYC-57 PO (07:38)
--- NOTE | 2017-04-19 07:41 | Discharge Instructions ---
Discharge Instructions Date of Service Apr 19, 2017. Admission Reason for Admission: Left Shoulder Complete Rotator Cuff Tear, Impingem Discharge Discharge Diagnosis / Problem: Left shoulder rotator cuff repair Discharge Goals Goal(s): Improve function Activity Recommendations Activity Limitations: as noted below . Instructions / Follow-Up Instructions / Follow-Up Please see typed post op instruction sheet and exercise sheet. No formal PT needed now. May change dressing post op day #2. Follow with Dr. Fernandez 10-12 days post op, call [phone] to confirm appt. Current Hospital Diet Patient's current hospital diet: AHA Diet (Heart Healthy), Diabetes Type 2 Diet Discharge Diet Recommended Diet: Diabetes Type 2 Diet Procedures Procedures Performed: Left shoulder arthroscopic rotator cuff repair, subacromial decompression,EXTENSIVE DEBRIDEMENT Pending Studies Studies pending at discharge: no Laboratory Results Hemoglobin A1c Test 02/21/17 09:20 Range/Units Estimated Average Glucose 166 mg/dl Hemoglobin A1c 7.4 H 4.5-5.6 % Lipid Panel Test 04/04/17 11:37 Range/Units Triglycerides Level 156 H 0-150 mg/dl Cholesterol Level 158 0-200 mg/dl HDL Cholesterol 48 mg/dl Cholesterol/HDL Ratio 3.3 LDL Cholesterol, Calculated 79 mg/dl Medical Emergencies . Who to Call and When: Medical Emergencies: If at any time you feel your situation is an emergency, please call 911 immediately. . Non-Emergent Contact Non-Emergency issues call your: Primary Care Provider . "Provider Documentation" section prepared by Aric Montero. . VTE Core Measure Inpt VTE Proph given/why not?: Other Anticoagulation (asa), T.E.DSommer Danielle, SCD's [place] Drug Monitoring Program Search Results: patient reviewed within database, no issues identified
[2017-04-19] MEDS: INSULIN ASPART 100 UNITS/ML 3 ML PEN SC SCH (08:00)
--- NOTE | 2017-04-19 08:04 | Anesthesiology Progress Note ---
Anesthesia Post Op Note Date & Time Apr 19, 2017 at 08:04 Vital Signs Pain Intensity: 6.0 Vital Signs Past 12 Hours Date Time Temp Pulse Resp B/P (MAP) Pulse Ox O2 Delivery O2 Flow Rate FiO2 04/19/17 07:07 36.8 78 16 130/72 (91) 98 CPAP 2.0 04/19/17 03:58 37.1 82 18 105/73 (84) 97 Nasal Cannula 2.0 CPAP 04/18/17 23:35 Nasal Cannula 2.0 CPAP 04/18/17 23:01 37.3 89 18 135/80 (98) 95 Nasal Cannula 2.0 CPAP 04/18/17 21:07 77 Notes Mental Status: alert / awake / arousable, participated in evaluation Pt Amnestic to Procedure: Yes Nausea / Vomiting: adequately controlled Pain: adequately controlled Airway Patency, RR, SpO2: stable & adequate BP & HR: stable & adequate Hydration State: stable & adequate Anesthetic Complications: no major complications apparent
[2017-04-19] MEDS: METFORMIN HCL 500 MG TAB PO SCH (08:59)
[2017-04-19] MEDS ORDERED: ASPIRIN 81 MG ECTAB PO SCH (09:00)
[2017-04-19] MEDS ORDERED: VENLAFAXINE HCL XR 75 MG CAPXR PO SCH (09:00)
[2017-04-19] MEDS ORDERED: METOPROLOL TARTRATE 50 MG TAB PO SCH (09:00)
[2017-04-19] MEDS ORDERED: ENALAPRIL MALEATE 10 MG TAB PO SCH (09:00)
[2017-04-19] MEDS ORDERED: FLUTICASONE/SALMETEROL (ADVAIR) 500/50 INH 14 PUFF INH SCH (09:00)
[2017-04-19 09:02] VITALS: BP 145/93; PULSE 86
[2017-04-19] MEDS ORDERED: ALBUTEROL HFA 8 GM INHALER INH STA (10:38)
[2017-04-19 10:58] VITALS: BP 145/93; PULSE 86; TEMP 36.8; O2SAT 98
--- NOTE | 2017-04-19 16:29 | Progress Note ---
Subjective Date of Service: Apr 19, 2017. Subjective I was asked to see pt prior to discharge, pt states that his RICHARDS is typical for him and he noticed no new changes in his breathing, he states he still smokes and at this point feels he is at his baseline Review of Systems Constitutional: No fever, No chills Respiratory: + shortness of breath, + dyspnea on exertion, No cough Cardiac: No chest pain, No PND, No edema Musculoskeletal: + joint pain, + muscle pain Objective Vital Signs Date Time Temp Pulse Resp B/P (MAP) Pulse Ox O2 Delivery O2 Flow Rate FiO2 04/19/17 10:58 36.8 86 16 98 Nasal Cannula CPAP 04/19/17 09:02 86 145/93 (110) 04/19/17 07:45 Nasal Cannula 2.0 CPAP 04/19/17 07:07 36.8 78 16 130/72 (91) 98 CPAP 2.0 04/19/17 03:58 37.1 82 18 105/73 (84) 97 Nasal Cannula 2.0 CPAP 04/18/17 23:35 Nasal Cannula 2.0 CPAP 04/18/17 23:01 37.3 89 18 135/80 (98) 95 Nasal Cannula 2.0 CPAP 04/18/17 21:07 77 04/18/17 19:51 37.1 93 18 141/69 (93) 91 Nasal Cannula 2.0 04/18/17 19:34 CPAP 04/18/17 17:37 37.1 76 18 127/80 (96) 95 Nasal Cannula 2.0 04/18/17 16:44 37.0 89 20 147/92 (110) 96 Nasal Cannula 2.0 Physical Exam General Appearance: + mild distress, + obese Eyes: PERRL, EOMI Respiratory/Chest: chest non-tender, + pertinent finding (poor air movment no wheezes or rales) Cardiovascular: regular rate, rhythm, no murmur Abdomen: normal bowel sounds, soft Laboratory Results Last 24 Hours Test 04/18/17 17:03 04/18/17 20:41 04/19/17 06:14 04/19/17 08:00 Bedside Glucose 216 mg/dl 262 mg/dl 175 mg/dl White Blood Count 12.52 K/uL Red Blood Count 4.12 M/uL Hemoglobin 11.9 g/dL Hematocrit 36.5 % Mean Corpuscular Volume 88.6 fL Mean Corpuscular Hemoglobin 28.9 pg Mean Corpuscular Hemoglobin Concent 32.6 g/dl Platelet Count 118 K/uL Mean Platelet Volume 9.5 fL Neutrophils (%) (Auto) 82.7 % Lymphocytes (%) (Auto) 7.8 % Monocytes (%) (Auto) 7.9 % Eosinophils (%) (Auto) 0.3 % Basophils (%) (Auto) 0.2 % Neutrophils # (Auto) 10.35 K/uL Lymphocytes # (Auto) 0.98 K/uL Monocytes # (Auto) 0.99 K/uL Eosinophils # (Auto) 0.04 K/uL Basophils # (Auto) 0.02 K/uL RDW Standard Deviation 49.2 fL RDW Coefficient of Variation 15.2 % Immature Granulocyte % (Auto) 1.1 % Immature Granulocyte # (Auto) 0.14 K/uL Sodium Level 136 mmol/L Potassium Level 3.9 mmol/L Chloride Level 100 mmol/L Carbon Dioxide Level 30 mmol/L Anion Gap 6.0 mmol/L Blood Urea Nitrogen 20 mg/dl Creatinine 1.10 mg/dl Est Creatinine Clear Calc Drug Dose 95.2 ml/min Estimated GFR () 80.6 Estimated GFR (Non- 69.6 BUN/Creatinine Ratio 18.0 Random Glucose 182 mg/dl Calcium Level 8.6 mg/dl Hepatitis C Antibody Screen NEG Assessment and Plan 67 yo male s/p Left shoulder arthroscopic rotator cuff repair, subacromial decompression and extensive debridement - DM type II: continue Metformin, - COPD: continue Advair, duonebs and albuterol hfa used at home, no wheezing currently and breathing comfortably - HTN: BP normal currently, continue home regimen, - BELEN: using home CPAP with nasal mask - GERD: PPI
--- NOTE | 2017-05-02 08:41 | DISCHARGE SUMMARY ---
DISCHARGE DIAGNOSIS: Left rotator cuff tear. SECONDARY DIAGNOSIS: Chronic obstructive pulmonary disease, gastroesophageal reflux disease, morbid obesity, type 2 diabetes. CONSULTS: Dr. Mendoza. COMPLICATIONS: None. PROCEDURE: The patient underwent a left shoulder arthroscopic rotator cuff repair with debridement and subacromial decompression with Dr. Fernandez on 04/18/2017. BRIEF HISTORY: Please see previously dictated history and physical. HOSPITAL SUMMARY: The patient was admitted on the above day for the above procedure. Procedure went without complication. Postop day 1, the patient was feeling well without complaints. He denied chest pain or shortness of breath. Vital signs were stable. He was afebrile. Dressing was clean, dry and intact. He was neurovascularly intact. Calves were soft and nontender. Oxygen stat was 98% with CPAP and 2 liters. CPAP is baseline for him. Capillary refill is less than 2 seconds. Dressing was clean, dry and intact. He was alert and oriented. Fingers were mobile. Sling was intact. Hemoglobin was 11.9. The patient began physical therapy and was discharged to home later that day in stable condition. For further review please see the chart. Lab, x-ray data and discharge instructions as per chart.
== END 2017-04-19 10:23 | disposition home or self-care (01) ==
LOC: C.ACU 06:39 → C.MSW 14:03 → ENRESERV 14:13
PROVIDERS: ADMIT Orthopaedic Surgery Sports Medicine; ATTEND Orthopaedic Surgery Sports Medicine
DX: S46.012A Strain of muscle(s) and tendon(s) of the rotator cuff of left shoulder, initial encounter (principal); S43.005A Unspecified dislocation of left shoulder joint, initial encounter; S46.212A Strain of muscle, fascia and tendon of other parts of biceps, left arm, initial encounter; M75.82 Other shoulder lesions, left shoulder; M65.812 Other synovitis and tenosynovitis, left shoulder; M75.52 Bursitis of left shoulder; M25.812 Other specified joint disorders, left shoulder; E66.01 Morbid (severe) obesity due to excess calories; I10 Essential (primary) hypertension; E78.00 Pure hypercholesterolemia, unspecified; J44.9 Chronic obstructive pulmonary disease, unspecified; E11.9 Type 2 diabetes mellitus without complications; G47.33 Obstructive sleep apnea (adult) (pediatric); F17.200 Nicotine dependence, unspecified, uncomplicated; Z87.442 Personal history of urinary calculi; K21.9 Gastro-esophageal reflux disease without esophagitis; Z91.81 History of falling; W19.XXXA Unspecified fall, initial encounter

== ENCOUNTER → 2017-05-25 | Outpatient (CLI) | payer OTHER ==
[~2017-05-25] MED LIST changes: -CEFAZOLIN 3000 MG/65 ML D5W IV SCH; -DEXAMETHASONE SOD INJ 4 MG/ML VIAL ONE; -HYDR-5688 PO; -LACTATED RINGER'S 1000ML 1,000 ML IV SCH; +OXYC-57 PO; -ROPIVACAINE 0.5% 5 MG/ML 30 ML VIAL ONE
[2017-05-25 14:00] LABS: BLOOD UREA NITROGEN 29 mg/dl (7-18); BUN/CREATININE RATIO 22.2 (10-20); CALCIUM 10.7 mg/dl (8.5-10.1); CARBON DIOXIDE 34 mmol/L (21-32); CHLORIDE 96 mmol/L (98-107); GLUCOSE 138 mg/dl (70-99); POTASSIUM 3.9 mmol/L (3.5-5.1); SODIUM 136 mmol/L (136-145)
== END | disposition home or self-care (01) ==
LOC: C.LABMFLN 09:30
PROVIDERS: ATTEND Physician Assistant Medical
DX: I50.33 Acute on chronic diastolic (congestive) heart failure (principal)

== ENCOUNTER → 2017-05-29 | Outpatient (CLI) | payer OTHER ==
[2017-05-29 13:29] LABS: BLOOD UREA NITROGEN 38 mg/dl (7-18); BUN/CREATININE RATIO 31.3 (10-20); CALCIUM 9.7 mg/dl (8.5-10.1); CARBON DIOXIDE 37 mmol/L (21-32); CHLORIDE 97 mmol/L (98-107); GLUCOSE 150 mg/dl (70-99); POTASSIUM 4.1 mmol/L (3.5-5.1); SODIUM 139 mmol/L (136-145)
== END | disposition home or self-care (01) ==
LOC: C.LAB1850 12:05
PROVIDERS: ATTEND Physician Assistant Medical
DX: E87.70 Fluid overload, unspecified (principal); I50.33 Acute on chronic diastolic (congestive) heart failure

== ENCOUNTER → 2017-06-02 | Outpatient (CLI) | payer OTHER ==
--- NOTE | 2017-06-02 13:08 | DIAGNOSTIC IMAGING REPORT ---
(CHEST) THORAX WITHOUT CT DOSE: 1202.54 mGy.cm CLINICAL HISTORY: 67 years-old Male with J44.9 Chronic obstructive pulmonary [id number] sca. COPD. TECHNIQUE: Multiaxial CT images of the chest were performed without contrast. A dose lowering technique was utilized adhering to the principles of ALARA. COMPARISON: Chest CT 04/06/2017, CT abdomen and pelvis 05/19/2015. FINDINGS: Thyroid is heterogeneous without dominant nodule identified. Heart is mildly enlarged with trace pericardial effusion. Coronary arterial calcifications are noted. Thoracic aorta is normal in both course and caliber. Mediastinal adenopathy is again seen with right paratracheal lymph nodes measuring up to 1.4 x 2.3 cm on image 132 of series 4 which appears unchanged. Precarinal lymph node measuring 1.2 cm in short axis is also unchanged. Subcarinal adenopathy measuring up to 1.7 cm also unchanged. Small left pleural effusion with subsegmental left basilar consolidation suggesting compressive atelectasis appears stable. Interval development of trace right pleural effusion. Mild respiratory motion artifact in its evaluation of the lung bases. No pneumothorax. Mild pleural parenchymal scarring is seen within the inferior segment lingula and basal right middle lobe. No focal suspicious pulmonary nodules or mass is identified. Spleen is enlarged, 16.5 cm. Low attenuating 1.5 x 1.2 cm nodule of the medial limb right adrenal gland suggests adenoma. Mild nonspecific gastrohepatic adenopathy. There is hepatomegaly with hepatic steatosis. Bilateral gynecomastia. Multilevel anterior endplate osteophytosis. IMPRESSION: 1. Small left pleural effusion with subsegmental left basilar consolidation redemonstrated. Interval development of trace right pleural effusion. 2. Unchanged mediastinal adenopathy as above. 3. Splenomegaly, hepatomegaly and hepatic steatosis. 4. 1.5 cm right adrenal adenoma Electronically signed by: Ke Dowd M.D. 06/02/2017 1:06 PM Dictated Date/Time: 06/02/2017 12:56 PM
== END | disposition home or self-care (01) ==
LOC: C.CTS 12:08
PROVIDERS: ATTEND Internal Medicine Critical Care Medicine
DX: F17.200 Nicotine dependence, unspecified, uncomplicated (principal); J44.9 Chronic obstructive pulmonary disease, unspecified; R91.8 Other nonspecific abnormal finding of lung field; J90 Pleural effusion, not elsewhere classified; R16.2 Hepatomegaly with splenomegaly, not elsewhere classified; K76.0 Fatty (change of) liver, not elsewhere classified; D35.01 Benign neoplasm of right adrenal gland

== ENCOUNTER → 2017-06-09 | Day surgery (SDC) | payer OTHER ==
[~2017-06-09] VITALS: Ht 182.9 cm; Wt 140.3 kg
[2017-06-09 12:18] VITALS: BP 123/68; PULSE 74; TEMP 36.7; O2SAT 97; Ht 182.9 cm; Wt 140.3 kg
--- NOTE | 2017-06-09 12:38 | History and Physical ---
History & Physical Date Jun 09, 2017. Chief Complaint Undiagnosed unilateral left-sided pleural effusion History of Present Illness The patient is a 67 year old male with complaints of left-sided pleural effusion of unknown etiology Patient is a 67-year-old gentleman with undiagnosed unilateral pleural effusion. Patient does have a long history of smoking with notable severe obstructive ventilatory disease and an FEV1 of 46% as well as obstructive sleep apnea. The patient is an increased risk for primary lung carcinoma secondary to his long tobacco history. We have decided to move forward with ultrasound evaluation of the chest and if safe a thoracentesis will be performed. CT thorax: Performed 04/06/[address] of the abd/pelvis 05/19/2015 ? Small left pleural effusion with associated atelectasis ? Mild mediastinal lymphadenopathy (sub-carinal 16 mm) ? Splenomegaly Past Medical/Surgical History Medical Problems: (1) Anticoagulant therapy (2) ATRIAL FIBRILLATION (3) ATRIAL FLUTTER (4) CAD (coronary artery disease) (5) CHR AIRWAY OBSTRUCT NEC (6) COPD (chronic obstructive pulmonary disease) (7) GOUTY ARTHROPATHY, UNSPECIFIED (8) HYPERLIPIDEMIA NEC/NOS (9) HYPERTENSION NOS (10) MORBID OBESITY (11) Spinal stenosis (12) TOBACCO USE DISORDER Surgical Problems: (1) S/P rotator cuff repair Additional History Hepatic Disease: No Endocrine Disorder: No Kidney Disease: No Heart Disease: Yes (Atrial fibrillation, congestive heart failure) Allergies Coded Allergies: [place] (Verified Allergy, Intermediate, HIVES, 06/09/17) Celecoxib (Verified Adverse Reaction, Intermediate, makes him nauseated, 06/09/17) Home Medications Scheduled Amoxicillin (Amoxil), 4 CAP PO BEFORE DENTAL Aspirin (Aspirin), 1 TAB PO QAM Atorvastatin (Lipitor), 40 MG PO HS Digoxin (Lanoxin), 0.25 MG PO HS Enalapril (Vasotec), 20 MG PO QAM Ezetimibe (Zetia), 10 MG PO HS Fluticasone Prop/Salmeterol (Advair Diskus 500/50 60 Dose), 1 PUFF INH QAM Metformin Hcl (Glucophage), 500 MG PO BID Metoprolol Tartrate (Lopressor), 50 MG PO QAM Tiotropium [place] (Spiriva Handihaler), 1 CAP INH QAM Venlafaxine Hcl (Venlafaxine Extended Rel), 75 MG PO QAM Zolpidem Tartrate (Zolpidem Tartrate), 1 TAB PO HS Scheduled PRN Albuterol (Proair Hfa), 2 PUFFS INH BID PRN for COPD/EMPHYSEMA Furosemide (Lasix), 80 MG PO DAILY PRN for WEIGHT GAIN Indomethacin (Indomethacin), 75 MG PO DAILY PRN for PRN Metolazone (Zaroxolyn), 5 MG PO DAILY PRN for WHEN TAKES LASIX Oxycodone/Acetaminophen 5MG/325MG (Percocet 5MG/325MG), 1-2 TABLETS PO Q4H PRN for Pain Potassium Chloride (Klor-Con), 2 TABS PO DAILY PRN for WHEN TAKES LASIX Physical Examination Skin: warm/dry, no rash Eyes: normal inspection, EOMI, sclerae normal ENT: normal ENT inspection, pharynx normal Head: normocephalic, atraumatic Neck: supple, no adenopathy, trachea midline Respiratory/Chest: lungs clear, normal breath sounds, no respiratory distress Cardiovascular: regular rate, rhythm, no edema, no murmur Abdomen / GI: normal bowel sounds, non tender Back: normal inspection Extremities: normal inspection, normal range of motion Neurologic/Psych: no motor/sensory deficits, alert, normal reflexes, oriented x 3 Diagnosis Undiagnosed unilateral left-sided pleural effusion ASA Classification: ASA Class III Plan of Treatment Ultrasound evaluation of the chest and possible left-sided thorax and
--- NOTE | 2017-06-09 13:51 | Discharge Instructions ---
Discharge Instructions Date of Service Jun 09, 2017. Admission Reason for Admission: Left Pleural Effusion Discharge Discharge Diagnosis / Problem: left-sided pleural effusion Discharge Goals Goal(s): Diagnostic testing Activity Recommendations Activity Limitations: resume your previous activity . Current Hospital Diet Patient's current hospital diet: Discharge Diet Recommended Diet: Regular Diet Procedures Procedures Performed: Ultrasound-guided left-sided pleural effusion Pending Studies Studies pending at discharge: no Laboratory Results Lipid Panel Test 04/04/17 11:37 Range/Units Triglycerides Level 156 H 0-150 mg/dl Cholesterol Level 158 0-200 mg/dl HDL Cholesterol 48 mg/dl Cholesterol/HDL Ratio 3.3 LDL Cholesterol, Calculated 79 mg/dl Medical Emergencies . Who to Call and When: Medical Emergencies: If at any time you feel your situation is an emergency, please call 911 immediately. . Non-Emergent Contact Non-Emergency issues call your: [facility] . . "Provider Documentation" section prepared by Jose Gonzales. . VTE Core Measure Inpt VTE Proph given/why not?: Treatment not indicated
--- NOTE | 2017-06-09 13:53 | Procedure Note ---
Procedure Note Date of Service Jun 09, 2017. Procedure Note Procedures: Left sided Thoracentesis Consent: obtained via the patient and placed into the chart Pre-Procedural Dx: Left-sided pleural effusion Post-Procedural Dx: Left-sided pleural effusion Analgesia: 8cc of 1% Liquid Lidocaine Procedure: The patient was placed in an upright position and thoracic US was used to select a spot for the procedure. A spot along the posterior axillary line was marked in the 7th intercostal space. The patient was then draped and prepped in a sterile fashion. A modified Seldinger technique was then used for catheter placement. Flowing this approximately 700 cc of straw-colored pleural fluid was removed. The patient was then cleaned and placed at a 60 degree angle in the bed were the US was used to evaluate for possible pneumothorax. The US showed good lung sliding and starry night sign. EBL: None Complications: None
[2017-06-09 14:36] LABS: PLEURAL FLUID TOTAL PROTEIN 2.6 g/dl
[2017-06-09 15:04] LABS: PLEURAL FLUID APPEARANCE CLEAR; PLEURAL FLUID COLOR STRAW; PLEURAL FLUID MONONUC RELAT 78.3 %; PLEURAL FLUID POLYNUC 21.7 %; PLEURAL FLUID SOURCE LEFT LUNG; PLEURAL FLUID WBC (A) 250 /uL
== END | disposition home or self-care (01) ==
LOC: C.ACU 11:26
PROVIDERS: ATTEND Internal Medicine Critical Care Medicine
DX: J90 Pleural effusion, not elsewhere classified (principal); J44.9 Chronic obstructive pulmonary disease, unspecified; F17.200 Nicotine dependence, unspecified, uncomplicated; G47.33 Obstructive sleep apnea (adult) (pediatric); I48.91 Unspecified atrial fibrillation; Z79.01 Long term (current) use of anticoagulants; I25.10 Atherosclerotic heart disease of native coronary artery without angina pectoris; E78.5 Hyperlipidemia, unspecified; I10 Essential (primary) hypertension; E66.01 Morbid (severe) obesity due to excess calories; Z79.82 Long term (current) use of aspirin

== ENCOUNTER 2017-06-20 13:01 | Inpatient (IN) | payer OTHER ==
[~2017-06-20] VITALS: Ht 182.9 cm; Wt 141.1 kg
[2017-06-20] MEDS ORDERED: SPRIN/30 INH (13:41)
[2017-06-20] MEDS ORDERED: POTA20TA16 PO (13:41)
[2017-06-20] MEDS ORDERED: AMOX875T PO (13:41)
[2017-06-20] MEDS ORDERED: METO5TAB25 PO (13:41)
[2017-06-20] MEDS ORDERED: TRAZ100T29 PO (13:41)
[2017-06-20] MEDS ORDERED: METO-217 PO (13:41)
[2017-06-20] MEDS ORDERED: LNX25 PO (13:41)
[2017-06-20] MEDS ORDERED: OXYC1TAB3 PO (13:41)
[2017-06-20] MEDS ORDERED: VNTHFA/IN INH (13:41)
--- NOTE | 2017-06-20 13:50 | EMERGENCY ROOM VISIT NOTE ---
History Report prepared by Ashley: Myrtle Frederick Under the Supervision of: Dr. Lebron Brooks M.D. First contact with patient: 13:26 Chief Complaint: OTHER COMPLAINT Stated Complaint: FLUID History of Present Illness The patient is a 67 year old male who presents to the Emergency Room with complaints of worsening fluid retention for the past 2 weeks. The patient had shoulder surgery two weeks ago. He states that since that time he has been "filling up with fluid." He reports fluid in his abdomen and feeling short of breath with exertion. He has gained 18 pounds in the past two weeks. The patient reports lower extremity swelling, which he notes is chronic. He is on digoxin and Lasix, which he has been taking as prescribed. He has followed up with Dr. Gonzales of pulmonology. He recommended that the patient come here yesterday for further evaluation and IV Lasix. The patient was unable to get here until today. He denies any headache, fevers, sore throat, cough, chest pain , and diarrhea. He has a history of COPD and is on O2 at all times. Source of History: patient Onset: 2 weeks ago Position: abdomen Quality: other (fluid retention) Timing: worsening Modifying Factors (Worsening): exertion Associated Symptoms: + SOB, No fevers, No headache, No sorethroat, No cough , No chest pain, No diarrhea Note: Pt notes 18 lb weight gain. Review of Systems See HPI for pertinent positives & negatives. A total of 10 systems reviewed and were otherwise negative. Past Medical & Surgical Medical Problems: (1) Acute diastolic CHF (congestive heart failure) (2) Anticoagulant therapy (3) ATRIAL FIBRILLATION (4) ATRIAL FLUTTER (5) CAD (coronary artery disease) (6) CHR AIRWAY OBSTRUCT NEC (7) COPD (chronic obstructive pulmonary disease) (8) GOUTY ARTHROPATHY, UNSPECIFIED (9) HYPERLIPIDEMIA NEC/NOS (10) HYPERTENSION NOS (11) MORBID OBESITY (12) Spinal stenosis (13) TOBACCO USE DISORDER Surgical Problems: (1) S/P rotator cuff repair Old medical records were reviewed. Nurse's notes were reviewed and I agree with. Family History No pertinent history stated. Social History Smoking Status: Current Every Day Smoker Drug Use: none Marital Status: single Housing Status: lives alone Occupation Status: disabled Current/Historical Medications Scheduled Albuterol Hfa (Ventolin Hfa), 1-2 PUFFS INH Q6H Amoxicillin (Amoxil), 4 CAP PO BEFORE DENTAL Amoxicillin & Pot Clavulanate (Augmentin 875-125 mg), 1 TAB PO BID Aspirin (Aspirin), 1 TAB PO QAM Atorvastatin (Lipitor), 40 MG PO HS Digoxin (Digoxin), 0.25 MG PO DAILY Enalapril (Vasotec), 20 MG PO QAM Fluticasone Prop/Salmeterol (Advair Diskus 500/50 60 Dose), 1 PUFF INH QAM Metformin Hcl (Glucophage), 500 MG PO BID Metolazone (Zaroxolyn), 5 MG PO DAILY Metoprolol Succinate (Toprol Xl), 50 MG PO DAILY Potassium Ext Rel (Klor-Con), 20 MEQ PO DAILY Tiotropium [place] (Spiriva Handihaler), 1 CAP INH DAILY Trazodone Hcl (Trazodone), 100 MG PO HS Zolpidem Tartrate (Zolpidem Tartrate), 5 MG PO HS Scheduled PRN Furosemide (Lasix), 80 MG PO DAILY PRN for WEIGHT GAIN Oxycodone Ir (Roxicodone Ir), 5 MG PO Q6H PRN for Pain Allergies Coded Allergies: [place] (Verified Allergy, Intermediate, HIVES, 06/20/17) Celecoxib (Verified Adverse Reaction, Intermediate, makes him nauseated, 06/20/17) Physical Exam Vital Signs Date Time Temp Pulse Resp B/P (MAP) Pulse Ox O2 Delivery O2 Flow Rate FiO2 06/20/17 16:31 75 20 145/55 97 CPAP 06/20/17 14:17 73 17 168/62 97 Room Air 06/20/17 13:48 84 06/20/17 13:39 Nasal Cannula 3.0 06/20/17 13:21 36.6 78 20 134/72 96 Room Air 3.0 Physical Exam General: Not acutely-ill appearing older male in no acute distress, wearing baseline oxygen. HEENT: Normal cephalic atraumatic. Pupils are equal round and reactive to light. Extraocular movements are intact. Oropharynx is pink with moist mucous membranes. No swelling of the mouth lips or tongue. Neck: Supple with a midline trachea. No meningeal signs or stiffness, no JVD or bruits. No Stridor. Chest: Crackles in lungs. No increased work of breathing. Heart: regular rate and rhythm. Abdomen: Soft nontender, nondistended without rebound guarding or rigidity. Extremities: Bilateral LE edema. No cyanosis or clubbing. No calf tenderness or assymetry Spine/Back. Non tender to palpation. No CVA tenderness Skin: Good turgor without rashes. Neurologic exam: Cranial nerves two through 12 are intact. Motor and sensation are intact and symmetrical throughout. Medical Decision & Procedures ER Provider Diagnostic Interpretation: Chest x-ray per my interpretation reveals cardiomegaly, CHF changes, no pneumothorax. Radiology results as stated below per my review and radiologist interpretation: CHEST ONE VIEW PORTABLE CLINICAL HISTORY: Difficult chest pain COMPARISON STUDY: March 29, 2017 FINDINGS: The heart is enlarged. There is suspected pulmonary venous hypertension. There is no lobar consolidation. There is a small left pleural effusion with associated left basilar atelectasis/consolidation IMPRESSION: 1. Cardiomegaly and suspected pulmonary venous hypertension 2. Small left pleural effusion with associated left basilar atelectasis/consolidation Electronically signed by: Erlin Beth M.D. 06/20/2017 2:06 PM Dictated Date/Time: 06/20/2017 2:05 PM Laboratory Results 06/20/17 13:50 Red Blood Count 3.31, Mean Corpuscular Volume 90.6, Mean Corpuscular Hemoglobin 27.5, Mean Corpuscular Hemoglobin Concent 30.3, Mean Platelet Volume 9.3, Neutrophils (%) (Auto) 80.2, Lymphocytes (%) (Auto) 8.5, Monocytes (%) (Auto) 6.6, Eosinophils (%) (Auto) 3.0, Basophils (%) (Auto) 0.5, Neutrophils # (Auto) 6.92, Lymphocytes # (Auto) 0.73, Monocytes # (Auto) 0.57, Eosinophils # (Auto) 0.26, Basophils # (Auto) 0.04 06/20/17 13:50 Test 06/20/17 13:50 06/20/17 13:55 White Blood Count 8.62 K/uL (4.8-10.8) Red Blood Count 3.31 M/uL (4.7-6.1) Hemoglobin 9.1 g/dL (14.0-18.0) Hematocrit 30.0 % (42-52) Mean Corpuscular Volume 90.6 fL (80-100) Mean Corpuscular Hemoglobin 27.5 pg (25-34) Mean Corpuscular Hemoglobin Concent 30.3 g/dl (32-36) Platelet Count 151 K/uL (130-400) Mean Platelet Volume 9.3 fL (7.4-10.4) Neutrophils (%) (Auto) 80.2 % Lymphocytes (%) (Auto) 8.5 % Monocytes (%) (Auto) 6.6 % Eosinophils (%) (Auto) 3.0 % Basophils (%) (Auto) 0.5 % Neutrophils # (Auto) 6.92 K/uL (1.4-6.5) Lymphocytes # (Auto) 0.73 K/uL (1.2-3.4) Monocytes # (Auto) 0.57 K/uL (0.11-0.59) Eosinophils # (Auto) 0.26 K/uL (0-0.5) Basophils # (Auto) 0.04 K/uL (0-0.2) RDW Standard Deviation 51.2 fL (36.4-46.3) RDW Coefficient of Variation 15.3 % (11.5-14.5) Immature Granulocyte % (Auto) 1.2 % Immature Granulocyte # (Auto) 0.10 K/uL (0.00-0.02) Prothrombin Time 12.6 SECONDS (9.0-12.0) Prothromb Time International Ratio 1.2 (0.9-1.1) Activated Partial Thromboplast Time 29.0 SECONDS (21.0-31.0) Partial Thromboplastin Ratio 1.1 Anion Gap 4.0 mmol/L (3-11) Estimated GFR () 43.9 Estimated GFR (Non- 37.9 BUN/Creatinine Ratio 31.3 (10-20) Calcium Level 9.0 mg/dl (8.5-10.1) Total Bilirubin 0.4 mg/dl (0.2-1) Direct Bilirubin 0.2 mg/dl (0-0.2) Aspartate Amino Transf (AST/SGOT) 18 U/L (15-37) Alanine Aminotransferase (ALT/SGPT) 15 U/L (12-78) Alkaline Phosphatase 50 U/L (45-117) Total Creatine Kinase 146 U/L (39-308) Creatine Kinase MB 3.8 ng/ml (0.5-3.6) Creatine Kinase MB Ratio 2.6 (0-3.0) Pro-B-Type Natriuretic Peptide 1748 pg/ml (0-900) Total Protein 7.3 gm/dl (6.4-8.2) Albumin 3.6 gm/dl (3.4-5.0) Lipase 170 U/L (73-393) Digoxin Level 1.3 ng/ml (0.8-2.0) Bedside Troponin I 0.060 ng/ml (0-0.045) Medications Administered Medications (Trade) Dose Ordered Sig/Cheri Route Start Time Stop Time Status Last Admin Dose Admin Furosemide (Lasix Inj) 40 mg NOW STAT IV 06/20/17 15:59 06/20/17 16:00 DC 06/20/17 16:30 40 MG ECG Indication: other Rate (beats per minute): 76 Rhythm: atrial fibrillation Findings: nonspecific-ST abn, no acute ischemic change, other (Poor R-wave progression) Comparison ECG Date: 03/29/2017 Change: no significant change ED Course 1326: Past medical records reviewed. The patient was evaluated in room B11A, and a complete history and physical examination were performed. 1559: Lasix 40 mg IV 1616: I spoke with Dr. Juárez. We discussed the patients case. The patient will be evaluated by the [facility] for further management. 1619: I reassessed the patient at this time. He is feeling better and resting comfortably. I discussed the results and treatment plan with the patient. I answered all pertaining questions that he had. He expressed understanding and verbalized agreement. Medical Decision Differentials include, but are not limited to; CHF, COPD, infection, cardiac disease, electrolyte or metabolic abnormality. This patient comes in as described above. Placed room B 11. Sent over from by his certified juvenile probation officer for admission and IV Lasix. He apparently has gained 18 pounds in the last 2 weeks. He has tight peripheral edema. He is on baseline oxygen as shortness of breath only with exertion. He's had no chest pain. IV access established EKG and chest x-ray were obtained. He was reassessed frequently. His chest x-ray shows a enlarged heart and he may have some mild pulmonary edema. His BUN and creatinine are elevated at 1748. He is anemic with hemoglobin 9.1. His BNP is elevated at 1700. He has minimal elevations troponin which is most likely related to CHF. He was given Lasix 40 mg IV. I do think that he needs to be admitted for further treatment and evaluation and diuresis. I have consulted Dr. Juárez the hospitalist and she will see him in the ER. Medication Reconcilliation Current Medication List: was personally reviewed by me Blood Pressure Screening Patient's blood pressure: Elevated blood pressure Blood pressure disposition: Elevated BP felt to be situational Consults Time Called: 161 Consulting Physician: Dr. Juárez Returned Call: [address] Juárez. We discussed the patients case. The patient will be evaluated by the [facility] for further management. Impression Primary Impression: CHF (congestive heart failure) Additional Impression: Peripheral edema Scribe Attestation The scribe's documentation has been prepared under my direction and personally reviewed by me in its entirety. I confirm that the note above accurately reflects all work, treatment, procedures, and medical decision making performed by me. Departure Information Dispostion Being Evaluated By Hospitalist Referrals Andrea Mi M.[email or web address]) (PCP) Patient Instructions [facility] Problem Qualifiers
--- NOTE | 2017-06-20 14:07 | DIAGNOSTIC IMAGING REPORT ---
CHEST ONE VIEW PORTABLE CLINICAL HISTORY: Difficult chest pain COMPARISON STUDY: March 29, 2017 FINDINGS: The heart is enlarged. There is suspected pulmonary venous hypertension. There is no lobar consolidation. There is a small left pleural effusion with associated left basilar atelectasis/consolidation IMPRESSION: 1. Cardiomegaly and suspected pulmonary venous hypertension 2. Small left pleural effusion with associated left basilar atelectasis/consolidation Electronically signed by: Erlin Beth M.D. 06/20/2017 2:06 PM Dictated Date/Time: 06/20/2017 2:05 PM
[2017-06-20 14:24] LABS: BASO % 0.5 %; BASO ABS # 0.04 K/uL (0-0.2); COMPLETE YES; IG% 1.2 %; LYMPH % 8.5 %; LYMPH ABS # 0.73 K/uL (1.2-3.4); MEAN CELL VOLUME 90.6 fL (80-100); MEAN CORPUSCULAR HEMOGLOBIN 27.5 pg (25-34); MEAN CORPUSCULAR HGB CONC 30.3 g/dl (32-36); MEAN PLATELET VOLUME 9.3 fL (7.4-10.4); MONO % 6.6 %; NEUT % 80.2 %; PLATELET COUNT 151 K/uL (130-400); RED BLOOD COUNT 3.31 M/uL (4.7-6.1); WHITE BLOOD COUNT 8.62 K/uL (4.8-10.8)
[2017-06-20 14:33] LABS: INR 1.2 (0.9-1.1); PARTIAL THROMBOPLASTIN RATIO 1.1; PROTHROMBIN TIME (PATIENT) 12.6 SECONDS (9.0-12.0)
[2017-06-20 14:56] LABS: ALT/SGPT 15 U/L (12-78); BLOOD UREA NITROGEN 57 mg/dl (7-18); BUN/CREATININE RATIO 31.3 (10-20); CARBON DIOXIDE 33 mmol/L (21-32); CHLORIDE 100 mmol/L (98-107); CREATININE 1.82 mg/dl (0.60-1.40); GLUCOSE 129 mg/dl (70-99); POTASSIUM 5.1 mmol/L (3.5-5.1); SODIUM 137 mmol/L (136-145)
[2017-06-20 15:01] LABS: ALKALINE PHOSPHATASE 50 U/L (45-117); AST/SGOT 18 U/L (15-37); CKMB/CK RATIO 2.6 (0-3.0)
[2017-06-20] MEDS ORDERED: FUROSEMIDE 40 MG/4 ML VIAL IV STA (15:59)
[2017-06-20] MEDS ORDERED: OXYCODONE HCL IR 5 MG TAB (IMMEDIATE RELEASE) PO PRN (17:00)
[2017-06-20] MEDS ORDERED: POLYETHYLENE (MIRALAX) 17 GM PACK PO PRN (17:00)
[2017-06-20] MEDS ORDERED: ALUMINUM/MAGNESIUM/SIMETH (MAALOX MAX) 30 ML UDC PO PRN (17:00)
[2017-06-20] MEDS ORDERED: ONDANSETRON INJ 2 MG/ML 2 ML VIAL IV PRN (17:00)
[2017-06-20] MEDS ORDERED: MAGNESIUM HYDROXIDE SUSP 30 ML UDC PO PRN (17:00)
[2017-06-20] MEDS ORDERED: ACETAMINOPHEN 325 MG TAB PO PRN (17:00)
--- NOTE | 2017-06-20 17:22 | History and Physical ---
History & Physical Date & Time of Service: Jun 20, 2017 at 17:18 Chief Complaint: FLUID Primary Care Physician: Andrea Mi M.D. ([facility]) History of Present Illness Source: patient Mr. aSmson is a 67 y/o male with PMHx of Persistent Atrial Fibrillation, CAD S/P Stent, COPD, Tobacco User, HLD, BELEN on CPAP, HTN, Diastolic CHF, and Obesity Hypoventilation Syndrome who presents for worsening SOB and 18 lbs weight gain x 2 weeks. Patient has had chronic lower extremity edema but reports worsening of fluid retention since his shoulder surgery in March but acutely worsening retention over the past two weeks. States that he had post- operative O2 and since has required continuous 3 L but denies the need for supplemental O2 prior to surgery. He believes his dry weight is around 298-309 lbs. He states he takes Lasix 80 mg daily. He was previously prescribed 120 mg and reports successful loss of 10 lbs when using this dose. His fluid retention largely is abdominal and reports pitting edema into the abdomen and hips. He was seen by Dr. Gonzales on 06/19 who recommended him to come to the hospital but he wanted to continue to try and diurese at home. He presented today for the fluid retention. Past Medical/Surgical History Medical Problems: (1) Anticoagulant therapy Status: Chronic (2) ATRIAL FIBRILLATION Status: Chronic (3) ATRIAL FLUTTER Status: Chronic (4) CAD (coronary artery disease) Status: Chronic (5) CHR AIRWAY OBSTRUCT NEC Status: Chronic (6) COPD (chronic obstructive pulmonary disease) Status: Chronic (7) GOUTY ARTHROPATHY, UNSPECIFIED Status: Chronic (8) HYPERLIPIDEMIA NEC/NOS Status: Chronic (9) HYPERTENSION NOS Status: Chronic (10) MORBID OBESITY Status: Chronic (11) Spinal stenosis Status: Chronic (12) TOBACCO USE DISORDER Status: Chronic Social History Smoking Status: Current Every Day Smoker Smokeless Tobacco Use: No Alcohol Use: none Drug Use: none Marital Status: single Housing status: lives with family Occupational Status: disabled Immunizations History of Influenza Vaccine: Unknown History of Tetanus Vaccine?: Unknown History of Pneumococcal: Yes Pneumococcal Date: May 08, 2011 History of Hepatitis B Vaccine: Unknown Multi-Drug Resistant Organisms History of MDRO: No Allergies Coded Allergies: [place] (Verified Allergy, Intermediate, HIVES, 06/20/17) Celecoxib (Verified Adverse Reaction, Intermediate, makes him nauseated, 06/20/17) Home Medications Scheduled Albuterol Hfa (Ventolin Hfa), 1-2 PUFFS INH Q6H Amoxicillin (Amoxil), 4 CAP PO BEFORE DENTAL Amoxicillin & Pot Clavulanate (Augmentin 875-125 mg), 1 TAB PO BID Aspirin (Aspirin), 1 TAB PO QAM Atorvastatin (Lipitor), 40 MG PO HS Digoxin (Digoxin), 0.25 MG PO DAILY Enalapril (Vasotec), 20 MG PO QAM Fluticasone Prop/Salmeterol (Advair Diskus 500/50 60 Dose), 1 PUFF INH QAM Metformin Hcl (Glucophage), 500 MG PO BID Metolazone (Zaroxolyn), 5 MG PO DAILY Metoprolol Succinate (Toprol Xl), 50 MG PO DAILY Potassium Ext Rel (Klor-Con), 20 MEQ PO DAILY Tiotropium [place] (Spiriva Handihaler), 1 CAP INH DAILY Trazodone Hcl (Trazodone), 100 MG PO HS Zolpidem Tartrate (Zolpidem Tartrate), 5 MG PO HS Scheduled PRN Furosemide (Lasix), 80 MG PO DAILY PRN for WEIGHT GAIN Oxycodone Ir (Roxicodone Ir), 5 MG PO Q6H PRN for Pain Review of Systems Constitutional: No fever, No chills ENT: No nasal symptoms, No sore throat Respiratory: + dyspnea on exertion, + dyspnea at rest, No cough Cardiovascular: No chest pain, No palpitations Abdomen: No pain, No nausea, No vomiting, No diarrhea, No constipation, No GI bleeding Musculoskeletal: + swelling (bilateral lower extremity extending to hip and abdomen) Genitourinary - Male: No dysuria Hematologic / Lymphatic: No abnormal bleeding/bruising Integumentary: + problem reported (superficial lacerations (from scratching) of lower extremities) Physical Exam Vital Signs Date Time Temp Pulse Resp B/P (MAP) Pulse Ox O2 Delivery O2 Flow Rate FiO2 06/20/17 16:31 75 20 145/55 97 CPAP 06/20/17 14:17 73 17 168/62 97 Room Air 06/20/17 13:48 84 06/20/17 13:39 Nasal Cannula 3.0 06/20/17 13:21 36.6 78 20 134/72 96 Room Air 3.0 General Appearance: WD/WN, no apparent distress, + obese Head: normocephalic, atraumatic Eyes: sclerae normal ENT: hearing grossly normal Neck: supple, no JVD, trachea midline Respiratory/Chest: lungs clear, no respiratory distress, no accessory muscle use, + decreased breath sounds Cardiovascular: no gallop, no murmur, + irregularly irregular Abdomen/GI: normal bowel sounds, non tender, soft, + pertinent finding (mild trace pitting edema of lower abdomen) Extremities/Musculoskelatal: no calf tenderness, + swelling (thickened skin with pitting edema) Neurologic/Psych: alert, oriented x 3 Skin: normal color, warm/dry Diagnostics Laboratory Results Results Past 24 Hours Test 06/20/17 13:50 06/20/17 13:55 Range/Units White Blood Count 8.62 4.8-10.8 K/uL Red Blood Count 3.31 4.7-6.1 M/uL Hemoglobin 9.1 14.0-18.0 g/dL Hematocrit 30.0 42-52 % Mean Corpuscular Volume 90.6 80-100 fL Mean Corpuscular Hemoglobin 27.5 25-34 pg Mean Corpuscular Hemoglobin Concent 30.3 32-36 g/dl Platelet Count 151 130-400 K/uL Mean Platelet Volume 9.3 7.4-10.4 fL Neutrophils (%) (Auto) 80.2 % Lymphocytes (%) (Auto) 8.5 % Monocytes (%) (Auto) 6.6 % Eosinophils (%) (Auto) 3.0 % Basophils (%) (Auto) 0.5 % Neutrophils # (Auto) 6.92 1.4-6.5 K/uL Lymphocytes # (Auto) 0.73 1.2-3.4 K/uL Monocytes # (Auto) 0.57 0.11-0.59 K/uL Eosinophils # (Auto) 0.26 0-0.5 K/uL Basophils # (Auto) 0.04 0-0.2 K/uL RDW Standard Deviation 51.2 36.4-46.3 fL RDW Coefficient of Variation 15.3 11.5-14.5 % Immature Granulocyte % (Auto) 1.2 % Immature Granulocyte # (Auto) 0.10 0.00-0.02 K/uL Prothrombin Time 12.6 9.0-12.0 SECONDS Prothromb Time International Ratio 1.2 0.9-1.1 Activated Partial Thromboplast Time 29.0 21.0-31.0 SECONDS Partial Thromboplastin Ratio 1.1 Sodium Level 137 136-145 mmol/L Potassium Level 5.1 3.5-5.1 mmol/L Chloride Level 100 98-107 mmol/L Carbon Dioxide Level 33 21-32 mmol/L Anion Gap 4.0 3-11 mmol/L Blood Urea Nitrogen 57 7-18 mg/dl Creatinine 1.82 0.60-1.40 mg/dl Estimated GFR () 43.9 Estimated GFR (Non- 37.9 BUN/Creatinine Ratio 31.3 10-20 Random Glucose 129 70-99 mg/dl Calcium Level 9.0 8.5-10.1 mg/dl Total Bilirubin 0.4 0.2-1 mg/dl Direct Bilirubin 0.2 0-0.2 mg/dl Aspartate Amino Transf (AST/SGOT) 18 15-37 U/L Alanine Aminotransferase (ALT/SGPT) 15 12-78 U/L Alkaline Phosphatase 50 45-117 U/L Total Creatine Kinase 146 39-308 U/L Creatine Kinase MB 3.8 0.5-3.6 ng/ml Creatine Kinase MB Ratio 2.6 0-3.0 Pro-B-Type Natriuretic Peptide 1748 0-900 pg/ml Total Protein 7.3 6.4-8.2 gm/dl Albumin 3.6 3.4-5.0 gm/dl Lipase 170 73-393 U/L Digoxin Level 1.3 0.8-2.0 ng/ml Bedside Troponin I 0.060 0-0.045 ng/ml Diagnostic Radiology CHEST ONE VIEW PORTABLE FINDINGS: The heart is enlarged. There is suspected pulmonary venous hypertension. There is no lobar consolidation. There is a small left pleural effusion with associated left basilar atelectasis/consolidation IMPRESSION: 1. Cardiomegaly and suspected pulmonary venous hypertension 2. Small left pleural effusion with associated left basilar atelectasis/consolidation EKG Atrial fibrillation Low voltage QRS Nonspecific T wave abnormality Cannot rule out Anterior infarct , age undetermined Abnormal ECG When compared with ECG of 29-MAR-2017 09:50, QRS axis Shifted left Minimal criteria for Anterior infarct are now Present Nonspecific T wave abnormality now evident in Lateral leads Confirmed by Tl Rowe ([id number]) on 06/20/2017 2:04:09 PM Impression Assessment and Plan Mr. Samson is a 67 y/o male with PMHx of Persistent Atrial Fibrillation, CAD S/P Stent, COPD, Tobacco User, HLD, BELEN on CPAP, HTN, Diastolic CHF, and Obesity Hypoventilation Syndrome who presents for worsening SOB and 18 lbs weight gain x 2 weeks. Acute Diastolic CHF: - Echo (05/29) - EF 50-55%; no regional wall motion abnormality; moderate dilated IVC - will not repeat echo - Rhythm monitoring and serial troponin - initial POC mildly elevated and mild elevation in BNP - Lasix 40 mg IV in ED and will give another 20 mg IV - equivalent to 120 mg that is normally successful for patient - No further Lasix ordered for AM given renal function - if improved with diuresis can consider continuing this dose vs conversion to Bumex - Continue Metalazone 5 mg daily Acute Kidney Injury: - Possibly from fluid overload - will assess kidney function in AM prior to further diuretics - Hold Enalapril; Hold daily KCl supplement until morning labs COPD/BELEN on CPAP/Obesity Hypoventilation Syndrome: - Ventolin, Advair, and Spiriva - May use own CPAP CAD S/P Stent: - ASA 81 mg daily and Atorvastatin 40 mg daily HTN: - ACEI held and cover with PRN Hydralazine Persistent Atrial Fibrillation: Rate Controlled - Digoxin 0.25 mg daily and Toprol LX 50 mg daily - No anticoagulation 2/2 GI bleed resulting in 12 units PRBC transfusion DVT Prophylaxis: LUCI/SCDs Disposition: From home Level of Care Telemetry Resuscitation Status FULL RESUSCITATION VTE Prophylaxis VTE Risk Assessment Done? Y/N: Yes Risk Level: Moderate Given or contraindicated: T.E.D. Stockings, SCD's Reviewed: Pt Seen/Exam by Me History Pt feels his LE swelling is not as much as his abd swelling. He feels that both are improving. He is wearing his CPAP, but states that he is not SOB but rather was about to take a nap so he put it on as would HS. States he saw Dr. Gonzales in the office yesterday who advised increased home diuretics, but this did not help and in fact his swelling was worse. States that he usually takes 120mg additional lasix when he has increased swelling. It is unclear why he did not try this prior to seeing Dr. Gonzales. No chest pain. Is feeling well otherwise. Agree with HPI/ROS as noted. General Appearance: no apparent distress, obese Eye Exam: bilateral eye normal inspection, bilateral eye EOMI Ears, Nose, Throat: hearing grossly normal Neck: supple Respiratory: normal breath sounds, no respiratory distress, decreased breath sounds Cardiovascular: normal peripheral pulses, irregularly irregular Gastrointestinal: non tender, soft, distended (pitting edema) Extremities: non-tender, pedal edema, swelling (pitting edema of entire LE, 2+) Neurologic/Psychiatric: alert, normal mood/affect, oriented x 3 Skin Characteristics: warm/dry, other (LE redness) Assessment/Plan Agree with plan as outlined above Given 40mg IV lasix in ED, will add additional 20mg IV to get to the 120mg PO equivalent pt has had success with in the past Trop with mild elevation, likely related to demand ischemia from substantial fluid overload, serials Recent ECHO with outpt cardiology with EF 50-55%, will not repeat at this time unless difficulty with diuresis ARF: in the setting of increased diuresis Monitor for now but may need to alter choice if worsening Hb is slightly below baseline, likely related to large amount of fluid overload dilution, monitor with diuresis Afib, no anticoagulation due to bleeding issue in the past BELEN, CPAP as at home
[2017-06-20 19:01] VITALS: BP 130/63; PULSE 93; TEMP 37.1; O2SAT 92
[2017-06-20] MEDS: ALBUTEROL HFA 8 GM INHALER INH SCH (19:51)
[2017-06-20 20:00] VITALS: BP 130/63; PULSE 93; TEMP 37.1; O2SAT 92; Ht 182.9 cm; Wt 141.1 kg
[2017-06-20] MEDS ORDERED: FUROSEMIDE INJ 20 MG in SYRINGE 0 ML IV ONE (20:00)
[2017-06-20 20:05] LABS: HEMATOCRIT 30.1 % (42-52)
[2017-06-20] MEDS: ATORVASTATIN 40 MG TAB PO SCH (20:37)
[2017-06-20] MEDS: ZOLPIDEM TARTRATE 5 MG TAB PO SCH (20:37)
[2017-06-20] MEDS: TRAZODONE HCL 100 MG TAB PO SCH (20:37)
[2017-06-20] MEDS ORDERED: ZOLPIDEM TARTRATE 10 MG TAB PO SCH (21:00)
[2017-06-20] MEDS ORDERED: HydrALAZINE HCL 20 MG/ML VIAL IV. PRN (21:15)
[2017-06-20] MEDS: DIGOXIN 0.25 MG TAB PO SCH (21:56)
[2017-06-20 23:41] VITALS: BP 121/70; PULSE 75; TEMP 36.8; O2SAT 98
[2017-06-21] MEDS: ALBUTEROL HFA 8 GM INHALER INH SCH ×4 (01:57→20:05)
[2017-06-21 02:53] LABS: HEMATOCRIT 28.6 % (42-52); MEAN CELL VOLUME 90.5 fL (80-100); MEAN CORPUSCULAR HEMOGLOBIN 27.5 pg (25-34); MEAN CORPUSCULAR HGB CONC 30.4 g/dl (32-36); MEAN PLATELET VOLUME 9.2 fL (7.4-10.4); PLATELET COUNT 138 K/uL (130-400); RED BLOOD COUNT 3.16 M/uL (4.7-6.1); WHITE BLOOD COUNT 6.97 K/uL (4.8-10.8)
[2017-06-21 03:16] LABS: BUN/CREATININE RATIO 31.9 (10-20); CALCIUM 8.8 mg/dl (8.5-10.1); CREATININE 1.74 mg/dl (0.60-1.40); POTASSIUM 4.5 mmol/L (3.5-5.1)
[2017-06-21 04:00] VITALS: BP 128/66; PULSE 96; TEMP 36.9; O2SAT 96
[2017-06-21 07:44] VITALS: BP 109/60; PULSE 74; TEMP 36.5; O2SAT 99
[2017-06-21] MEDS: TIOTROPIUM BROMIDE 5 PUFF/90 MCG INH INH SCH (08:24)
[2017-06-21] MEDS: ASPIRIN 81 MG ECTAB PO SCH (08:25)
[2017-06-21] MEDS: METOPROLOL SUCC 50MG EXT REL TAB PO SCH (08:26)
[2017-06-21] MEDS: FLUTICASONE/SALMETEROL (ADVAIR) 500/50 INH 14 PUFF INH SCH (08:26)
[2017-06-21] MEDS: METOLAZONE 5 MG TAB PO SCH (08:26)
[2017-06-21] MEDS ORDERED: ENALAPRIL MALEATE 10 MG TAB PO SCH (09:00)
[2017-06-21] MEDS ORDERED: POTASSIUM CHLORIDE 20 MEQ TABCR PO SCH (09:00)
[2017-06-21 11:27] VITALS: BP 136/71; PULSE 74; TEMP 37.1; O2SAT 95
[2017-06-21 15:12] VITALS: BP 132/76; PULSE 73; TEMP 36.6; O2SAT 94
[2017-06-21] MEDS ORDERED: DIGOXIN 0.25 MG TAB PO SCH (16:00)
[2017-06-21] MEDS ORDERED: FUROSEMIDE INJ 80 MG in SYRINGE 0 ML IV ONE (16:30)
[2017-06-21 19:43] VITALS: BP 124/75; PULSE 80; TEMP 37.1; O2SAT 100
[2017-06-21] MEDS: ZOLPIDEM TARTRATE 5 MG TAB PO SCH ×2 (20:51→22:00)
[2017-06-21] MEDS: ATORVASTATIN 40 MG TAB PO SCH (20:51)
[2017-06-21] MEDS: TRAZODONE HCL 100 MG TAB PO SCH (20:52)
[2017-06-21] MEDS: DIGOXIN 0.25 MG TAB PO SCH (20:52)
[2017-06-22] VITALS (8 sets, daily range): BP systolic 113–148; BP diastolic 46–75; PULSE 71–81; TEMP 36.5–36.9; O2SAT 96–100
[2017-06-22] MEDS: ALBUTEROL HFA 8 GM INHALER INH SCH ×4 (01:45→19:50)
[2017-06-22 06:17] LABS: BUN/CREATININE RATIO 36.1 (10-20); CALCIUM 9.1 mg/dl (8.5-10.1); CREATININE 1.26 mg/dl (0.60-1.40); POTASSIUM 3.9 mmol/L (3.5-5.1)
--- NOTE | 2017-06-22 06:43 | Progress Note ---
Subjective Date of Service: Jun 21, 2017. Subjective Patient reports feeling better today, but reports that his normal body weight is around 300. He states that he has a long way to go. He wants to be more diuresed. Patient denies any chest pain, palpitations, nausea, vomiting. Problem List Medical Problems: (1) CHF (congestive heart failure) Status: Acute (2) Peripheral edema Status: Acute Review of Systems Constitutional: No fever, No chills Respiratory: No cough, No sputum Cardiac: + orthopnea, No chest pain Abdomen: No pain, No nausea Musculoskeletal: No see HPI, No joint pain All Other Systems: Reviewed and Negative Medications Current Inpatient Medications Medications (Trade) Dose Ordered Sig/Cheri Route Start Time Stop Time Status Last Admin Dose Admin Acetaminophen (Tylenol Tab) 650 mg Q4H PRN PO 06/20/17 17:00 07/20/17 16:59 Al Hydrox/Mg Hydrox/Simethicone (Maalox Max Susp) 15 ml Q4H PRN PO 06/20/17 17:00 07/20/17 16:59 Magnesium Hydroxide (Milk Of Magnesia Susp) 30 ml Q12H PRN PO 06/20/17 17:00 07/20/17 16:59 Ondansetron HCl (Zofran Inj) 4 mg Q6H PRN IV 06/20/17 17:00 07/20/17 16:59 Polyethylene (Miralax Powder Packet) 17 gm DAILY PRN PO 06/20/17 17:00 07/20/17 16:59 Albuterol (Ventolin Hfa Inhaler) 2 puffs Q6H INH 06/20/17 20:00 07/20/17 19:59 06/22/17 19:50 2 PUFFS Aspirin (Ecotrin Tab) 81 mg QAM PO 06/21/17 09:00 07/21/17 08:59 06/22/17 07:49 81 MG Atorvastatin Calcium (Lipitor Tab) 40 mg HS PO 06/20/17 21:00 07/20/17 20:59 06/22/17 20:47 40 MG Salmeterol Xinafoate/ Fluticasone (Advair Diskus 500/50 Inh) 1 puff QAM INH 06/21/17 09:00 07/21/17 08:59 06/22/17 07:49 1 PUFF Metolazone (Zaroxolyn Tab) 5 mg DAILY PO 06/21/17 09:00 07/21/17 08:59 06/22/17 07:49 5 MG Metoprolol Succinate (Toprol Xl Tab) 50 mg DAILY PO 06/21/17 09:00 07/21/17 08:59 06/22/17 07:49 50 MG Oxycodone HCl (Roxicodone Immediate Rel Tab) 5 mg Q6H PRN PO 06/20/17 17:00 07/04/17 16:59 06/22/17 19:47 5 MG Potassium Chloride (Klor-Con Tab) 20 meq DAILY PO 06/21/17 09:00 07/21/17 08:59 Future Hold Tiotropium [place] (Spiriva Handihaler Inhaler) 1 puff DAILY INH 06/21/17 09:00 07/21/17 08:59 06/22/17 07:49 1 PUFF Trazodone HCl (Desyrel Tab) 100 mg HS PO 06/20/17 21:00 07/20/17 20:59 06/22/17 20:47 100 MG Zolpidem Tartrate (Ambien Tab) 5 mg HS PO 06/20/17 21:00 07/20/17 20:59 06/22/17 20:46 5 MG Hydralazine HCl (HydrALAZINE INJ) 10 mg Q6 PRN IV. 06/20/17 21:15 07/20/17 21:14 Digoxin (Lanoxin Tab) 0.25 mg HS PO 06/20/17 21:45 07/20/17 21:44 06/22/17 20:47 0.25 MG Diphenhydramine HCl (Benadryl Extra Strength Cream) 1 appln QID PRN EXT 06/22/17 11:00 07/22/17 10:59 06/22/17 20:52 1 APPLN Potassium Chloride (Klor-Con M10) 20 meq BID PO 06/22/17 21:00 07/22/17 20:59 06/22/17 20:47 20 MEQ Objective Vital Signs Date Time Temp Pulse Resp B/P (MAP) Pulse Ox O2 Delivery O2 Flow Rate FiO2 06/22/17 04:31 36.9 78 18 148/75 (99) 96 CPAP 06/22/17 04:00 Nasal Cannula 3.0 CPAP 06/22/17 00:00 Nasal Cannula 3.0 CPAP 06/21/17 20:52 80 06/21/17 20:00 Nasal Cannula 3.0 CPAP 06/21/17 19:43 37.1 80 18 124/75 (91) 100 CPAP 06/21/17 16:00 Nasal Cannula 3.0 Humidified Oxygen CPAP 06/21/17 15:12 36.6 73 19 132/76 (94) 94 Humidified Oxygen 3.0 06/21/17 12:04 Nasal Cannula 3.0 Humidified Oxygen CPAP 06/21/17 11:27 37.1 74 20 136/71 (92) 95 CPAP 06/21/17 08:25 Nasal Cannula 3.0 Humidified Oxygen CPAP 06/21/17 07:44 36.5 74 22 109/60 (76) 99 CPAP Physical Exam General Appearance: WD/WN, no apparent distress Neck: supple, thyroid normal Respiratory/Chest: chest non-tender, no respiratory distress, no accessory muscle use, + crackles, + rhonchi Cardiovascular: regular rate, rhythm, no edema, no gallop Abdomen: normal bowel sounds, non tender, soft Extremities: + pedal edema Neurologic/Psychiatric: alert, normal mood/affect, oriented x 3 Skin: normal color Lymphatic: no adenopathy Laboratory Results Last 24 Hours Test 06/21/17 07:35 06/21/17 11:32 06/21/17 16:39 06/21/17 20:10 Bedside Glucose 131 mg/dl 139 mg/dl 121 mg/dl 130 mg/dl Test 06/22/17 05:14 Sodium Level 140 mmol/L Potassium Level 3.9 mmol/L Chloride Level 100 mmol/L Carbon Dioxide Level 35 mmol/L Anion Gap 5.0 mmol/L Blood Urea Nitrogen 46 mg/dl Creatinine 1.26 mg/dl Est Creatinine Clear Calc Drug Dose 85.7 ml/min Estimated GFR () 68.4 Estimated GFR (Non- 59.0 BUN/Creatinine Ratio 36.1 Random Glucose 125 mg/dl Calcium Level 9.1 mg/dl Assessment and Plan Mr. Samson is a 67 y/o male with PMHx of Persistent Atrial Fibrillation, CAD S/P Stent, COPD, Tobacco User, HLD, BELEN on CPAP, HTN, Diastolic CHF, and Obesity Hypoventilation Syndrome who presents for worsening SOB and 18 lbs weight gain x 2 weeks. Acute Diastolic CHF: - Echo (05/29) - EF 50-55%; no regional wall motion abnormality; moderate dilated IVC - will not repeat echo - Rhythm monitoring and serial troponin - initial POC mildly elevated and mild elevation in BNP - Lasix 40 mg IV in ED and will give another 20 mg IV - equivalent to 120 mg that is normally successful for patient -Will continue with lasix today. will give 80 mg IV Patient offered thornton cath but he refused. WILL MONITOR Electrolytes. Acute Kidney Injury: - Possibly from fluid overload - will assess kidney function in AM prior to further diuretics - Likely from cardiorenal syndrome. will likely improve with diuretic and this will likely improve perfusion. COPD/BELEN on CPAP/Obesity Hypoventilation Syndrome: - Ventolin, Advair, and Spiriva - May use own CPAP CAD S/P Stent: - ASA 81 mg daily and Atorvastatin 40 mg daily HTN: - ACEI held and cover with PRN Hydralazine Persistent Atrial Fibrillation: Rate Controlled - Digoxin 0.25 mg daily and Toprol LX 50 mg daily - No anticoagulation 2/2 GI bleed resulting in 12 units PRBC transfusion DVT Prophylaxis: LUCI/SCDs Disposition: From home Continued [facility] stay due to: multiple IV medications needed Discharge planning: home
[2017-06-22 07:14] LABS: HEMATOCRIT 29.6 % (42-52); MEAN CELL VOLUME 90.2 fL (80-100); MEAN CORPUSCULAR HEMOGLOBIN 27.1 pg (25-34); MEAN CORPUSCULAR HGB CONC 30.1 g/dl (32-36); MEAN PLATELET VOLUME 9.2 fL (7.4-10.4); PLATELET COUNT 139 K/uL (130-400); RED BLOOD COUNT 3.28 M/uL (4.7-6.1); WHITE BLOOD COUNT 6.85 K/uL (4.8-10.8)
[2017-06-22] MEDS: METOPROLOL SUCC 50MG EXT REL TAB PO SCH (07:49)
[2017-06-22] MEDS: ASPIRIN 81 MG ECTAB PO SCH (07:49)
[2017-06-22] MEDS: FLUTICASONE/SALMETEROL (ADVAIR) 500/50 INH 14 PUFF INH SCH (07:49)
[2017-06-22] MEDS: METOLAZONE 5 MG TAB PO SCH (07:49)
[2017-06-22] MEDS: TIOTROPIUM BROMIDE 5 PUFF/90 MCG INH INH SCH (07:49)
[2017-06-22] MEDS ORDERED: FUROSEMIDE INJ 60 MG in SYRINGE 0 ML IV ONE (11:00)
--- NOTE | 2017-06-22 17:02 | Progress Note ---
Subjective Date of Service: Jun 22, 2017. Subjective Patient reports feeling better today. He reports that physically he is about 70 % back to his baseline. Patient though is about 20 pounds above his dry weight. Patient denies any new symptoms. Problem List Medical Problems: (1) CHF (congestive heart failure) Status: Acute (2) Peripheral edema Status: Acute Review of Systems Constitutional: No fever, No chills Respiratory: No cough, No sputum Cardiac: + orthopnea, No chest pain Abdomen: No pain, No nausea Neurologic: No memory loss, No paralysis Psychiatric: No depression symptoms, No anhedonism Skin: + rash, + itch All Other Systems: Reviewed and Negative Medications Current Inpatient Medications Medications (Trade) Dose Ordered Sig/Cheri Route Start Time Stop Time Status Last Admin Dose Admin Acetaminophen (Tylenol Tab) 650 mg Q4H PRN PO 06/20/17 17:00 07/20/17 16:59 Al Hydrox/Mg Hydrox/Simethicone (Maalox Max Susp) 15 ml Q4H PRN PO 06/20/17 17:00 07/20/17 16:59 Magnesium Hydroxide (Milk Of Magnesia Susp) 30 ml Q12H PRN PO 06/20/17 17:00 07/20/17 16:59 Ondansetron HCl (Zofran Inj) 4 mg Q6H PRN IV 06/20/17 17:00 07/20/17 16:59 Polyethylene (Miralax Powder Packet) 17 gm DAILY PRN PO 06/20/17 17:00 07/20/17 16:59 Albuterol (Ventolin Hfa Inhaler) 2 puffs Q6H INH 06/20/17 20:00 07/20/17 19:59 06/22/17 19:50 2 PUFFS Aspirin (Ecotrin Tab) 81 mg QAM PO 06/21/17 09:00 07/21/17 08:59 06/22/17 07:49 81 MG Atorvastatin Calcium (Lipitor Tab) 40 mg HS PO 06/20/17 21:00 07/20/17 20:59 06/22/17 20:47 40 MG Salmeterol Xinafoate/ Fluticasone (Advair Diskus 500/50 Inh) 1 puff QAM INH 06/21/17 09:00 07/21/17 08:59 06/22/17 07:49 1 PUFF Metolazone (Zaroxolyn Tab) 5 mg DAILY PO 06/21/17 09:00 07/21/17 08:59 06/22/17 07:49 5 MG Metoprolol Succinate (Toprol Xl Tab) 50 mg DAILY PO 06/21/17 09:00 07/21/17 08:59 06/22/17 07:49 50 MG Oxycodone HCl (Roxicodone Immediate Rel Tab) 5 mg Q6H PRN PO 06/20/17 17:00 07/04/17 16:59 06/22/17 19:47 5 MG Potassium Chloride (Klor-Con Tab) 20 meq DAILY PO 06/21/17 09:00 07/21/17 08:59 Future Hold Tiotropium [place] (Spiriva Handihaler Inhaler) 1 puff DAILY INH 06/21/17 09:00 07/21/17 08:59 06/22/17 07:49 1 PUFF Trazodone HCl (Desyrel Tab) 100 mg HS PO 06/20/17 21:00 07/20/17 20:59 06/22/17 20:47 100 MG Zolpidem Tartrate (Ambien Tab) 5 mg HS PO 06/20/17 21:00 07/20/17 20:59 06/22/17 20:46 5 MG Hydralazine HCl (HydrALAZINE INJ) 10 mg Q6 PRN IV. 06/20/17 21:15 07/20/17 21:14 Digoxin (Lanoxin Tab) 0.25 mg HS PO 06/20/17 21:45 07/20/17 21:44 06/22/17 20:47 0.25 MG Diphenhydramine HCl (Benadryl Extra Strength Cream) 1 appln QID PRN EXT 06/22/17 11:00 07/22/17 10:59 06/22/17 20:52 1 APPLN Potassium Chloride (Klor-Con M10) 20 meq BID PO 06/22/17 21:00 07/22/17 20:59 06/22/17 20:47 20 MEQ Objective Vital Signs Date Time Temp Pulse Resp B/P (MAP) Pulse Ox O2 Delivery O2 Flow Rate FiO2 06/22/17 16:00 100 Nasal Cannula 3.0 06/22/17 15:41 CPAP 06/22/17 15:36 36.9 71 18 123/61 (81) 100 CPAP 06/22/17 12:00 Nasal Cannula 3.0 06/22/17 11:07 36.6 80 18 132/55 (80) 100 Nasal Cannula 3.0 06/22/17 07:45 Nasal Cannula 3.0 06/22/17 07:30 36.5 76 22 113/46 (68) 96 06/22/17 04:31 36.9 78 18 148/75 (99) 96 CPAP 06/22/17 04:00 Nasal Cannula 3.0 CPAP 06/22/17 00:00 Nasal Cannula 3.0 CPAP 06/21/17 20:52 80 06/21/17 20:00 Nasal Cannula 3.0 CPAP 06/21/17 19:43 37.1 80 18 124/75 (91) 100 CPAP Physical Exam Comments: General Appearance: WD/WN, no apparent distress, + obese Head: normocephalic, atraumatic Eyes: sclerae normal ENT: hearing grossly normal Neck: supple, no JVD, trachea midline Respiratory/Chest: lungs clear, no respiratory distress, no accessory muscle use, + decreased breath sounds Cardiovascular: no gallop, no murmur, rrr Abdomen/GI: normal bowel sounds, non tender, soft, + pertinent finding (mild trace pitting edema of lower abdomen) Extremities/Musculoskelatal: no calf tenderness, + swelling (thickened skin with pitting edema) Neurologic/Psych: alert, oriented x 3 Skin: normal color, warm/dry Laboratory Results Last 24 Hours Test 06/21/17 20:10 06/22/17 05:14 06/22/17 07:27 06/22/17 11:17 Bedside Glucose 130 mg/dl 132 mg/dl 163 mg/dl White Blood Count 6.85 K/uL Red Blood Count 3.28 M/uL Hemoglobin 8.9 g/dL Hematocrit 29.6 % Mean Corpuscular Volume 90.2 fL Mean Corpuscular Hemoglobin 27.1 pg Mean Corpuscular Hemoglobin Concent 30.1 g/dl RDW Standard Deviation 50.1 fL RDW Coefficient of Variation 15.3 % Platelet Count 139 K/uL Mean Platelet Volume 9.2 fL Nucleated RBC Absolute Count (auto) 0.00 K/uL Nucleated Red Blood Cells % 0.0 % Sodium Level 140 mmol/L Potassium Level 3.9 mmol/L Chloride Level 100 mmol/L Carbon Dioxide Level 35 mmol/L Anion Gap 5.0 mmol/L Blood Urea Nitrogen 46 mg/dl Creatinine 1.26 mg/dl Est Creatinine Clear Calc Drug Dose 85.7 ml/min Estimated GFR () 68.4 Estimated GFR (Non- 59.0 BUN/Creatinine Ratio 36.1 Random Glucose 125 mg/dl Calcium Level 9.1 mg/dl Assessment and Plan Mr. Samson is a 67 y/o male with PMHx of Persistent Atrial Fibrillation, CAD S/P Stent, COPD, Tobacco User, HLD, BELEN on CPAP, HTN, Diastolic CHF, and Obesity Hypoventilation Syndrome who presents for worsening SOB and 18 lbs weight gain x 2 weeks. Acute Diastolic CHF: - Echo (05/29) - EF 50-55%; no regional wall motion abnormality; moderate dilated IVC - will not repeat echo - Rhythm monitoring and serial troponin - initial POC mildly elevated and mild elevation in BNP - Lasix 40 mg IV in ED and will give another 20 mg IV - equivalent to 120 mg that is normally successful for patient -Will continue with lasix. yesterday had 80 mg IV -This AM atietn will receive 60mg IV -will reassess in afternnon and monitor Is and Os. Patient has continued to be negative today. Patient offered thornton cath but he refused. WILL MONITOR Electrolytes, however, will initate potassium today, given that patient will likely had hypokalemia from the lasix. Acute Kidney Injury: -Resolved. - Possibly from fluid overload - will assess kidney function in AM prior to further diuretics - Likely from cardiorenal syndrome. will likely improve with diuretic and this will likely improve perfusion. COPD/BELEN on CPAP/Obesity Hypoventilation Syndrome: - Ventolin, Advair, and Spiriva - May use own CPAP CAD S/P Stent: - ASA 81 mg daily and Atorvastatin 40 mg daily HTN: - ACEI held and cover with PRN Hydralazine Persistent Atrial Fibrillation: Rate Controlled - Digoxin 0.25 mg daily and Toprol LX 50 mg daily - No anticoagulation 2/2 GI bleed resulting in 12 units PRBC transfusion DVT Prophylaxis: LUCI/SCDs Disposition: From home Continued [facility] stay due to: multiple IV medications needed Discharge planning: home
[2017-06-22] MEDS ORDERED: POTASSIUM CHLORIDE 10 MEQ TABCR PO ONE (17:15)
[2017-06-22] MEDS ORDERED: FUROSEMIDE INJ 20 MG in SYRINGE 0 ML IV ONE (17:15)
[2017-06-22] MEDS: DiphenhydrAMINE 2%/ZINC 0.1% CREAM 28GM TUBE EXT PRN ×2 (17:47→20:52)
[2017-06-22] MEDS: ZOLPIDEM TARTRATE 5 MG TAB PO SCH (20:46)
[2017-06-22] MEDS: DIGOXIN 0.25 MG TAB PO SCH (20:47)
[2017-06-22] MEDS: ATORVASTATIN 40 MG TAB PO SCH (20:47)
[2017-06-22] MEDS: TRAZODONE HCL 100 MG TAB PO SCH (20:47)
[2017-06-22] MEDS: POTASSIUM CHLORIDE 10 MEQ TABCR PO SCH (20:47)
[2017-06-23] MEDS: ALBUTEROL HFA 8 GM INHALER INH SCH ×3 (02:00→13:28)
[2017-06-23 04:29] VITALS: BP 122/70; PULSE 77; TEMP 36.9; O2SAT 99
[2017-06-23 05:49] LABS: HEMATOCRIT 31.2 % (42-52); MEAN CELL VOLUME 90.2 fL (80-100); MEAN CORPUSCULAR HEMOGLOBIN 27.7 pg (25-34); MEAN CORPUSCULAR HGB CONC 30.8 g/dl (32-36); MEAN PLATELET VOLUME 9.2 fL (7.4-10.4); PLATELET COUNT 132 K/uL (130-400); RED BLOOD COUNT 3.46 M/uL (4.7-6.1); WHITE BLOOD COUNT 7.03 K/uL (4.8-10.8)
[2017-06-23 06:28] LABS: BUN/CREATININE RATIO 28.4 (10-20); CALCIUM 9.4 mg/dl (8.5-10.1); CREATININE 1.29 mg/dl (0.60-1.40); POTASSIUM 3.8 mmol/L (3.5-5.1)
[2017-06-23 07:27] VITALS: BP 117/53; PULSE 85; TEMP 36.7; O2SAT 95
[2017-06-23] MEDS: TIOTROPIUM BROMIDE 5 PUFF/90 MCG INH INH SCH (07:38)
[2017-06-23] MEDS: POTASSIUM CHLORIDE 10 MEQ TABCR PO SCH (07:38)
[2017-06-23] MEDS: METOPROLOL SUCC 50MG EXT REL TAB PO SCH (07:38)
[2017-06-23] MEDS: ASPIRIN 81 MG ECTAB PO SCH (07:38)
[2017-06-23] MEDS: FLUTICASONE/SALMETEROL (ADVAIR) 500/50 INH 14 PUFF INH SCH (07:38)
[2017-06-23] MEDS: METOLAZONE 5 MG TAB PO SCH (07:39)
[2017-06-23] MEDS: DiphenhydrAMINE 2%/ZINC 0.1% CREAM 28GM TUBE EXT PRN (09:39)
[2017-06-23] MEDS ORDERED: FUROSEMIDE 40 MG TAB PO ONE (09:45)
[2017-06-23 11:29] VITALS: BP 126/75; PULSE 82; TEMP 36.8; O2SAT 96
--- NOTE | 2017-06-23 13:29 | Discharge Instructions ---
Discharge Instructions Date of Service Jun 23, 2017. Admission Reason for Admission: Acute Diastolic Chf Discharge Discharge Diagnosis / Problem: Acute Diastolic CHF Discharge Goals Goal(s): Decrease discomfort, Improve function Activity Recommendations Activity Limitations: resume your previous activity . Instructions / Follow-Up Instructions / Follow-Up Call your Primary Care doctor if any of the following symptoms or problems start or get worse: * Shortness of breath or difficulty breathing * Wake up at night short of breath * Chest pain * Cough * Swelling of your hands, feet, or legs * More fatigued or tired with your normal activity * Palpitations - sudden fast heart beats WEIGHT * Weigh yourself every morning after using the bathroom. * Use the same scale. * Wear the same amount of clothing. * Write your weight down on a chart. * Call your Primary Care doctor if you gain more than 2-3 pounds in 1-2 days. MEDICATIONS * Use this discharge instruction sheet for medication instructions. * Take your medications at the time your doctor ordered. * Do not skip a dose of your medicines. * If you miss a dose of medicine, take it as soon as possible, but DO NOT DOUBLE A DOSE. * Read your medicine information when you get home. * Know all of the side effects of your medicine. If in doubt, ask your pharmacist * Call your Primary Care doctor's office if you have any side effects. * Be sure all of your doctors know what medicine and herbs you take (including cold, flu, and herbal medicine). Take the following with you to your follow-up doctor appointments: * Weight Chart * Medication List * List of questions Do not drink excessive alcohol, beer or wine. Current Hospital Diet Patient's current hospital diet: AHA Diet (Heart Healthy), Low Sodium Diet (2gm Na), Diabetes Type 2 Diet Discharge Diet Recommended Diet: AHA Diet (Heart Healthy), Low Sodium Diet (2gm Na) Fluid Restriction: 1800 ml (7 cups) Pending Studies Studies pending at discharge: no Laboratory Results Lipid Panel Test 04/04/17 11:37 Range/Units Triglycerides Level 156 H 0-150 mg/dl Cholesterol Level 158 0-200 mg/dl HDL Cholesterol 48 mg/dl Cholesterol/HDL Ratio 3.3 LDL Cholesterol, Calculated 79 mg/dl Medical Emergencies . Who to Call and When: Call 911 or go to the Emergency Room if: * If at any time you feel your situation is an emergency * You have tightness or pain in your chest that does not go away with rest or Nitroglycerin * You are very short of breath even with rest . Non-Emergent Contact Non-Emergency issues call your: Primary Care Provider . . "Provider Documentation" section prepared by Adams Mirza. . Information Systems Security Specialist Recommendations Information Systems Security Specialist Recommendations: F/U with PCP within 1 week. F/U with cardio within next 2 weeks. Call 911 and go to the Emergency Room if: * You have tightness or pain in your chest that does not go away with rest or Nitroglycerin * You are very short of breath even with rest Call your doctor if any of the following symptoms or problems start or get worse: * Shortness of breath or difficulty breathing * Wake up at night short of breath * Chest pain * Cough * Swelling of your hands, fee, or legs * More fatigued or tired with your normal activity * Palpitations - sudden fast heart beats WEIGHT * Weigh yourself every morning after using the bathroom. * Use the same scale. * Wear the same amount of clothing. * Write your weight down on your chart. * Call your doctor if you gain more than 2-3 pounds in 1-2 days. MEDICATIONS * Use this discharge instruction sheet for instructions. * Take your medications at the time your doctor ordered. * Do not skip a dose of your medicines. * If you miss a dose of medicine, take as soon as possible, but DO NOT DOUBLE A DOSE. * Read your medicine information when you get home. * Know all of the side effects of your medicine. * Call your doctor's office if you have any side effects. * Be sure all of your doctors know what medicine and herbs you take (including cold, flu, and herbal medicine). * Pain Medicine: If you do not get relief from your pain, please call your doctor for help. Take the following with you to your follow-up doctor appointments: * Weight Chart * Medication List * List of questions Do not drink excessive alcohol, beer or wine. VTE Core Measure Inpt VTE Proph given/why not?: Lana Danielle, [facility]
[2017-06-23 13:35] VITALS: BP 126/75; PULSE 82; TEMP 36.8; O2SAT 96
--- NOTE | 2017-06-24 07:57 | Discharge Summary ---
Discharge Summary Date of Service Jun 23, 2017. Discharge Summary Admission Date: Jun 20, 2017 at 17:06 Discharge Date: Jun 23, 2017 Discharge Disposition: Home Principal Diagnosis: Acute Diastolic heart failure Immunizations: Have You Had Influenza Vaccine: Unknown History of Tetanus Vaccine?: Unknown History of Pneumococcal: Yes Pneumococcal Date: May 08, 2011 History of Hepatitis B Vaccine: Unknown Medication Reconciliation Continued Medications: Albuterol Hfa (Ventolin Hfa) 200 Puffs/19610 Mcg Aers 1-2 PUFFS INH Q6H, #1 INHALER Amoxicillin (Amoxil) 500 Mg Cap 4 CAP PO BEFORE DENTAL , #7 CAP USES 1 HOUR PRIOR TO DENTAL DAYA Amoxicillin & Pot Clavulanate (Augmentin 875-125 mg) 1 Tab Tab 1 TAB PO BID, #14 TAB Aspirin (Aspirin) 81 Mg Tab 1 TAB PO QAM Atorvastatin (Lipitor) 40 Mg Tab 40 MG PO HS, TAB Digoxin (Digoxin) 0.25 Mg Tab 0.25 MG PO DAILY Enalapril (Vasotec) 10 Mg Tab 20 MG PO QAM, TAB Fluticasone Prop/Salmeterol (Advair Diskus 500/50 60 Dose) 1 Ea Aerp 1 PUFF INH QAM, INHALER Furosemide (Lasix) 40 Mg Tab 80 MG PO DAILY PRN for WEIGHT GAIN, TAB Metformin Hcl (Glucophage) 500 Mg Tab 500 MG PO BID, TAB Metolazone (Zaroxolyn) 5 Mg Tab 5 MG PO DAILY, TAB Metoprolol Succinate (Toprol Xl) 50 Mg Tabcr 50 MG PO DAILY, #30 TAB Oxycodone Ir (Roxicodone Ir) 5 Mg Tab 5 MG PO Q6H PRN for Pain, TAB Potassium Ext Rel (Klor-Con) 20 Meq Tabcr 20 MEQ PO DAILY, TAB Tiotropium Marion (Spiriva Handihaler) 30 Puff/540 Mcg Aerp 1 CAP INH DAILY, INHALER Trazodone Hcl (Trazodone) 100 Mg Tab 100 MG PO HS, TAB Zolpidem Tartrate (Zolpidem Tartrate) 10 Mg Tab 5 MG PO HS, TAB Discharge Exam Review of Systems: Constitutional: No fever, No chills Respiratory: No cough, No sputum Cardiovascular: No chest pain, No orthopnea Musculoskeletal: No joint pain, No muscle pain Neurologic: No memory loss Psychiatric: No anhedonism Endocrine: No fatigue Physical Exam: General Appearance: WD/WN, no apparent distress Neck: supple Respiratory/Chest: chest non-tender, lungs clear, normal breath sounds Cardiovascular: regular rate, rhythm, no edema, no JVD Abdomen / GI: normal bowel sounds, non tender, soft Extremities: no calf tenderness Skin: warm/dry Lymphatic: no adenopathy Hospital Course Mr. Samson is a 67 y/o male with PMHx of Persistent Atrial Fibrillation, CAD S/P Stent, COPD, Tobacco User, HLD, BELEN on CPAP, HTN, Diastolic CHF, and Obesity Hypoventilation Syndrome who presents for worsening SOB and 18 lbs weight gain x 2 weeks. Acute Diastolic CHF: - Echo (05/29) - EF 50-55%; no regional wall motion abnormality; moderate dilated IVC - will not repeat echo - Rhythm monitoring and serial troponin - initial POC mildly elevated and mild elevation in BNP -Patent received high amount of lasix during hospital course which improved his symptoms and also improved his creatinine (cardiorenal syndrome) -will discharge patient home. -sotero have patient continue on home lasix as stated in his discharge instructions and have patient f/u with cardio and PCP. Acute Kidney Injury: -Resolved. - Possibly from fluid overload - will assess kidney function in AM prior to further diuretics - Likely from cardiorenal syndrome. will likely improve with diuretic and this will likely improve perfusion. COPD/BELEN on CPAP/Obesity Hypoventilation Syndrome: - Ventolin, Advair, and Spiriva - May use own CPAP CAD S/P Stent: - ASA 81 mg daily and Atorvastatin 40 mg daily HTN: - ACEI held and cover with PRN Hydralazine Persistent Atrial Fibrillation: Rate Controlled - Digoxin 0.25 mg daily and Toprol LX 50 mg daily - No anticoagulation 2/2 GI bleed resulting in 12 units PRBC transfusion DVT Prophylaxis: LUCI/SCDs Total Time Spent: Greater than 30 minutes This includes examination of the patient, discharge planning, medication reconciliation, and communication with other providers. Discharge Instructions Please refer to the electronic Patient Visit Report (Discharge Instructions) for additional information. Follow-Up as stated in discharge instructions
== END 2017-06-23 14:17 | disposition home or self-care (01) | DRG 291 ==
LOC: C.EDB 13:02 → C.MED 17:06 → ENRESERV 17:23
PROVIDERS: ADMIT Family Medicine; ATTEND Internal Medicine Sports Medicine
DX: I13.0 Hypertensive heart and chronic kidney disease with heart failure and stage 1 through stage 4 chronic kidney disease, or unspecified chronic kidney disease (principal); I50.33 Acute on chronic diastolic (congestive) heart failure; I48.1 Persistent atrial fibrillation; N17.9 Acute kidney failure, unspecified; I24.8 Other forms of acute ischemic heart disease; E66.2 Morbid (severe) obesity with alveolar hypoventilation; Z68.41 Body mass index [BMI] 40.0-44.9, adult; I25.10 Atherosclerotic heart disease of native coronary artery without angina pectoris; Z95.5 Presence of coronary angioplasty implant and graft; J44.9 Chronic obstructive pulmonary disease, unspecified; F17.200 Nicotine dependence, unspecified, uncomplicated; E78.5 Hyperlipidemia, unspecified; Z79.899 Other long term (current) drug therapy; Z79.82 Long term (current) use of aspirin